=== PATIENT | female | born 1950 | race Caucasian/White ===

== ENCOUNTER 2016-05-19 15:58 | Inpatient (IN) | payer OTHER ==
[~2016-05-19] VITALS: Ht 152.4 cm; Wt 136.8 kg
[~2016-05-19 15:58] MED LIST: NORPTMEDS CO
[2016-05-19] MEDS ORDERED: DILTIAZEM HCL 25 MG/5 ML VIAL IV ONE (17:00)
[2016-05-19] MEDS ORDERED: METOPROLOL TARTRATE 1MG/1ML-5ML VIAL IV ONE (17:30)
[2016-05-19 17:36] LABS: Basophils # (auto) 0 uL; Basophils % (auto) 0.2 % (0.0-2.0); Eosinophils # (auto) 0 uL; Eosinophils % (auto) 0.2 % (0.0-7.0); Hemoglobin 15.7 g/dL (12.2-16.2); Lymphocytes # (auto) 1.4 uL; Mean Corpuscular Hemoglobin 30.2 pg (28.0-32.0); Mean Corpuscular Volume 94.3 fL (80.0-100.0); Mean Platelet Volume 10.1 fL (7.4-10.4); Monocytes # (auto) 0.9 uL; Neutrophils # (auto) 10.4 uL; Neutrophils % (auto) 81.6 % (37.0-80.0); Platelet Count (auto) 206 10^3/uL (140-450); Red Cell Distribution Width 14.4 % (11.6-16.0); White Blood Cell 12.8 10^3/uL (4.4-10.8)
[2016-05-19] MEDS ORDERED: ENOXAPARIN SOD 150 MG/1 ML SYRINGE SC ONE (17:45)
[2016-05-19 17:47] LABS: Albumin 2.9 g/dL (3.4-5.0); Calcium 8.9 mg/dL (8.5-10.1); Magnesium 2.2 mg/dL (1.6-2.6); Potassium 5.1 mmol/L (3.5-5.1)
[2016-05-19 17:50] LABS: BUN/Creatinine Ratio 21.6
[2016-05-19 17:53] LABS: Bilirubin, Total 0.4 mg/dL (0.2-1.0); Total Protein 7.5 g/dL (6.4-8.2)
[2016-05-19 18:09] LABS: Urine Bilirubin Negative (Negative); Urine Blood TRACE /uL (Negative); Urine Color Yellow (Yellow); Urine Glucose 4+ mg/dL (Normal); Urine Ketone 1+ (Negative); Urine Nitrite Negative (Negative); Urine RBC 3 /hpf (0 - 4); Urine Squamous Epithelial Cell FEW /hpf (<5); Urine Urobilinogen Normal (Negative); Urine pH 5.5 (5.0-8.0)
[2016-05-19] MEDS ORDERED: InsuLIN REG 1unit/0.01ml Soln (100units/ml) IV ONE (18:15)
[2016-05-19] MEDS ORDERED: metroNIDAZOLE 500MG/100ML 100 ML IV ONE (18:15)
[2016-05-19] MEDS ORDERED: cefTRIAXone 1GM/50ML D5W 50 ML IV ONE (18:15)
[2016-05-19 18:22] LABS: INR 1.08 (0.9-1.15); Prothrombin Time 11.1 sec (9.37-12.3)
[2016-05-19] MEDS ORDERED: IOHEXOL 350 MG/ML 100ML IJ ONE (18:35)
[2016-05-19 19:30] LABS: Lactic Acid 2.2 mmol/L (0.4-2.0)
[2016-05-19 19:33] LABS: REFLEX LACTIC ACID YES OR NO NO
[2016-05-19] MEDS ORDERED: ONDANSETRON HCL 4 MG/2 ML VIAL IV PRN (21:45)
[2016-05-19] MEDS ORDERED: TEMAZEPAM 15 MG CAP PO PRN (21:45)
[2016-05-19] MEDS ORDERED: DEXTROSE (50%) 50ML SYRG IV PRN (21:45)
[2016-05-19] MEDS ORDERED: NITROGLYCERIN 0.4 MG SL TAB SL PRN (21:45)
[2016-05-19] MEDS ORDERED: MORPHINE SULF INJ 2 MG/ML SYRINGE 1ML IV PRN (21:45)
[2016-05-19] MEDS ORDERED: ACETAMINOPHEN 325 MG TAB PO PRN (21:45)
[2016-05-19] MEDS: FAMOTIDINE 20 MG TAB PO SCH (22:37)
[2016-05-19] MEDS: METOPROLOL TARTRATE 25 MG TAB PO SCH (22:37)
[2016-05-19] MEDS: SODIUM CHLORIDE 0.9% 1,000 ML IV SCH (22:38)
[2016-05-19] MEDS: HYDROcodone-ACET 5/325MG TAB PO PRN (22:40)
[2016-05-19 23:10] VITALS: BP 105/71
[2016-05-20] VITALS (38 sets, daily range): BP systolic 100–153; BP diastolic 53–96
[2016-05-20] MEDS: InsuLIN REG 1unit/0.01ml Soln (100units/ml) SC SCH ×6 (00:44→20:19)
[2016-05-20] MEDS: MORPHINE SULF INJ 2 MG/ML SYRINGE 1ML IV PRN ×3 (01:52→22:59)
[2016-05-20] MEDS: ACCU-CHEK COMFORT CURVE STRIP VI SCH ×6 (04:00→20:16)
[2016-05-20] MEDS: HYDROcodone-ACET 5/325MG TAB PO PRN (04:44)
[2016-05-20 06:05] LABS: Basophils # (auto) 0.1 uL; Basophils % (auto) 0.6 % (0.0-2.0); Eosinophils # (auto) 0.1 uL; Eosinophils % (auto) 0.9 % (0.0-7.0); Hematocrit 46.1 % (36.0-46.0); Hemoglobin 14.8 g/dL (12.2-16.2); Lymphocytes # (auto) 2.6 uL; Lymphocytes % (auto) 21.1 % (10.0-50.0); Mean Corpuscular Hemoglobin 30.3 pg (28.0-32.0); Mean Corpuscular Hgb Conc. 32.1 g/dL (32.0-36.0); Mean Corpuscular Volume 94.3 fL (80.0-100.0); Mean Platelet Volume 9.9 fL (7.4-10.4); Monocytes # (auto) 0.8 uL; Monocytes % (auto) 6.6 % (0.0-12.0); Neutrophils # (auto) 8.6 uL; Neutrophils % (auto) 70.8 % (37.0-80.0); Platelet Count (auto) 212 10^3/uL (140-450); Red Cell Distribution Width 14.2 % (11.6-16.0); White Blood Cell 12.2 10^3/uL (4.4-10.8)
[2016-05-20] MEDS: ENOXAPARIN SOD 150 MG/1 ML SYRINGE SC SCH ×3 (06:12→22:44)
[2016-05-20 06:52] LABS: Albumin 2.6 g/dL (3.4-5.0); BUN/Creatinine Ratio 26.5; Bilirubin, Total 0.4 mg/dL (0.2-1.0); Calcium 9.2 mg/dL (8.5-10.1); Potassium 4.4 mmol/L (3.5-5.1); Total Protein 6.5 g/dL (6.4-8.2)
[2016-05-20] MEDS ORDERED: cefTRIAXone 1GM/50ML D5W 50 ML IV SCH (09:00)
[2016-05-20] MEDS: FAMOTIDINE 20 MG TAB PO SCH ×2 (10:27→22:43)
[2016-05-20] MEDS: METOPROLOL TARTRATE 25 MG TAB PO SCH ×2 (10:34→22:44)
[2016-05-20] MEDS: SODIUM CHLORIDE 0.9% 1,000 ML IV SCH ×2 (10:34→22:45)
[2016-05-20] MEDS ORDERED: AMIODARONE HCL 150 MG in D5W 5% 100 ML IV ONE (13:15)
[2016-05-20] MEDS ORDERED: AMIODARONE HCL 900 MG in DEXTROSE 500 ML IV SCH (13:25)
[2016-05-20] MEDS: ASPirin-EC 81 mg tab PO SCH (17:45)
[2016-05-20 18:37] LABS: INR 1.14 (0.9-1.15); Partial Thromboplastin Time 31.8 sec (22.64-33.71); Prothrombin Time 11.7 sec (9.37-12.3)
[2016-05-20] MEDS: AMIODARONE HCL 900 MG in DEXTROSE 500 ML IV SCH (19:26)
[2016-05-20] MEDS ORDERED: WARFARIN SODIUM 5 MG TAB PO ONE (20:00)
[2016-05-20] MEDS: INSULIN DETEMIR(LEVEMIR) 1unit/0.01ml Soln (100units/ml) SC SCH (23:06)
[2016-05-21] VITALS (41 sets, daily range): BP systolic 90–137; BP diastolic 44–80
[2016-05-21] MEDS: InsuLIN REG 1unit/0.01ml Soln (100units/ml) SC SCH ×6 (00:02→20:24)
[2016-05-21] MEDS: HYDROcodone-ACET 5/325MG TAB PO PRN ×3 (01:29→18:48)
[2016-05-21 03:49] LABS: Basophils # (auto) 0.2 uL; Basophils % (auto) 1.7 % (0.0-2.0); Eosinophils # (auto) 0.1 uL; Eosinophils % (auto) 0.9 % (0.0-7.0); Lymphocytes # (auto) 1.5 uL; Lymphocytes % (auto) 13.5 % (10.0-50.0); Mean Corpuscular Hemoglobin 30.1 pg (28.0-32.0); Mean Corpuscular Hgb Conc. 31.9 g/dL (32.0-36.0); Mean Corpuscular Volume 94.2 fL (80.0-100.0); Mean Platelet Volume 9.1 fL (7.4-10.4); Monocytes # (auto) 0.8 uL; Monocytes % (auto) 7.4 % (0.0-12.0); Neutrophils # (auto) 8.4 uL; Neutrophils % (auto) 76.5 % (37.0-80.0); Platelet Count (auto) 201 10^3/uL (140-450); Red Cell Distribution Width 13.8 % (11.6-16.0); SUSPECT VIEW TRANSMISSION
[2016-05-21 04:00] LABS: INR 1.12 (0.9-1.15); Partial Thromboplastin Time 33.8 sec (22.64-33.71); Prothrombin Time 11.5 sec (9.37-12.3)
[2016-05-21 04:04] LABS: BUN/Creatinine Ratio 23.9; Calcium 8.4 mg/dL (8.5-10.1); Potassium 4.4 mmol/L (3.5-5.1)
[2016-05-21] MEDS: ACCU-CHEK COMFORT CURVE STRIP VI SCH ×6 (04:04→20:05)
[2016-05-21] MEDS: SODIUM CHLORIDE 0.9% 1,000 ML IV SCH (09:00)
[2016-05-21] MEDS: ASPirin-EC 81 mg tab PO SCH (10:29)
[2016-05-21] MEDS: METOPROLOL TARTRATE 25 MG TAB PO SCH (10:30)
[2016-05-21] MEDS: ENOXAPARIN SOD 150 MG/1 ML SYRINGE SC SCH ×2 (10:30→21:43)
[2016-05-21] MEDS: FAMOTIDINE 20 MG TAB PO SCH ×2 (10:30→21:42)
[2016-05-21] MEDS: MORPHINE SULF INJ 2 MG/ML SYRINGE 1ML IV PRN ×2 (11:28→21:41)
[2016-05-21] MEDS ORDERED: METOPROLOL TARTRATE 50 MG TAB PO ONE (14:30)
[2016-05-21] MEDS: AMIODARONE HCL 200 MG TAB PO SCH (14:50)
[2016-05-21] MEDS ORDERED: WARFARIN SODIUM 2.5 MG TAB PO ONE (17:00)
[2016-05-21] MEDS: AMIODARONE HCL 900 MG in DEXTROSE 500 ML IV SCH (19:58)
[2016-05-21] MEDS: METOPROLOL TARTRATE 50 MG TAB PO SCH (21:50)
[2016-05-21] MEDS ORDERED: METOPROLOL TARTRATE 50 MG TAB PO SCH (22:00)
[2016-05-21] MEDS: INSULIN DETEMIR(LEVEMIR) 1unit/0.01ml Soln (100units/ml) SC SCH (22:02)
[2016-05-22] VITALS (7 sets, daily range): BP systolic 92–140; BP diastolic 60–84
[2016-05-22] MEDS: ACCU-CHEK COMFORT CURVE STRIP VI SCH ×7 (01:09→23:59)
[2016-05-22] MEDS: InsuLIN REG 1unit/0.01ml Soln (100units/ml) SC SCH ×6 (04:00→20:09)
[2016-05-22 05:07] LABS: Basophils # (auto) 0.1 uL; Basophils % (auto) 0.7 % (0.0-2.0); Eosinophils # (auto) 0.1 uL; Eosinophils % (auto) 0.7 % (0.0-7.0); Hematocrit 44.6 % (36.0-46.0); Hemoglobin 14.4 g/dL (12.2-16.2); Lymphocytes # (auto) 1.3 uL; Lymphocytes % (auto) 10.1 % (10.0-50.0); Mean Corpuscular Hemoglobin 30.5 pg (28.0-32.0); Mean Corpuscular Hgb Conc. 32.3 g/dL (32.0-36.0); Mean Corpuscular Volume 94.3 fL (80.0-100.0); Mean Platelet Volume 9.2 fL (7.4-10.4); Monocytes % (auto) 7.5 % (0.0-12.0); Neutrophils # (auto) 10.8 uL; Platelet Count (auto) 247 10^3/uL (140-450); Red Cell Distribution Width 14.4 % (11.6-16.0); White Blood Cell 13.3 10^3/uL (4.4-10.8)
[2016-05-22 05:20] LABS: INR 1.26 (0.9-1.15); Partial Thromboplastin Time 37.1 sec (22.64-33.71)
[2016-05-22] MEDS ORDERED: AMIODARONE HCL 200 MG TAB PO ONE (09:30)
[2016-05-22] MEDS: FAMOTIDINE 20 MG TAB PO SCH ×2 (09:32→21:31)
[2016-05-22] MEDS: ENOXAPARIN SOD 150 MG/1 ML SYRINGE SC SCH (09:33)
[2016-05-22] MEDS: METOPROLOL TARTRATE 50 MG TAB PO SCH ×2 (09:33→23:59)
[2016-05-22] MEDS: ASPirin-EC 81 mg tab PO SCH (09:33)
[2016-05-22] MEDS: AMIODARONE HCL 200 MG TAB PO SCH (09:34)
[2016-05-22] MEDS: HYDROcodone-ACET 5/325MG TAB PO PRN (11:03)
[2016-05-22] MEDS: HEPARIN DRIP/D5W 100UNITS/ML 250 ML IV SCH (14:33)
[2016-05-22] MEDS ORDERED: WARFARIN SODIUM 2.5 MG TAB PO ONE (17:00)
[2016-05-22] MEDS: INSULIN DETEMIR(LEVEMIR) 1unit/0.01ml Soln (100units/ml) SC SCH (21:56)
[2016-05-23] MEDS: InsuLIN REG 1unit/0.01ml Soln (100units/ml) SC SCH ×5 (00:25→16:00)
[2016-05-23 04:00] VITALS: BP 111/78
[2016-05-23] MEDS: HEPARIN DRIP/D5W 100UNITS/ML 250 ML IV SCH ×2 (04:00→08:18)
[2016-05-23] MEDS: ACCU-CHEK COMFORT CURVE STRIP VI SCH ×5 (04:24→21:29)
[2016-05-23 04:32] LABS: Basophils # (auto) 0.1 uL; Basophils % (auto) 0.7 % (0.0-2.0); Eosinophils # (auto) 0.2 uL; Eosinophils % (auto) 2.1 % (0.0-7.0); Hematocrit 40.3 % (36.0-46.0); Lymphocytes # (auto) 1.7 uL; Lymphocytes % (auto) 18.4 % (10.0-50.0); Mean Corpuscular Hemoglobin 30.2 pg (28.0-32.0); Mean Corpuscular Hgb Conc. 32.3 g/dL (32.0-36.0); Mean Corpuscular Volume 93.8 fL (80.0-100.0); Mean Platelet Volume 8.8 fL (7.4-10.4); Monocytes # (auto) 0.8 uL; Monocytes % (auto) 8.4 % (0.0-12.0); Neutrophils # (auto) 6.5 uL; Neutrophils % (auto) 70.4 % (37.0-80.0); Platelet Count (auto) 247 10^3/uL (140-450); Red Cell Distribution Width 14.5 % (11.6-16.0); White Blood Cell 9.2 10^3/uL (4.4-10.8)
[2016-05-23 04:53] LABS: BUN/Creatinine Ratio 25.5; Calcium 8.3 mg/dL (8.5-10.1); Potassium 4.1 mmol/L (3.5-5.1)
[2016-05-23 06:15] LABS: INR 1.95 (0.9-1.15); Prothrombin Time 20.1 sec (9.37-12.3)
[2016-05-23 06:16] LABS: Partial Thromboplastin Time 100.4 sec (22.64-33.71)
[2016-05-23] MEDS: LACTULOSE 20Gm/30ML SOLN PO PRN ×2 (07:20→07:48)
[2016-05-23 08:00] VITALS: BP 98/37
[2016-05-23] MEDS: ASPirin-EC 81 mg tab PO SCH (09:50)
[2016-05-23] MEDS: AMIODARONE HCL 200 MG TAB PO SCH (09:50)
[2016-05-23] MEDS: FAMOTIDINE 20 MG TAB PO SCH ×2 (09:51→21:28)
[2016-05-23] MEDS: METOPROLOL TARTRATE 50 MG TAB PO SCH ×2 (09:51→21:28)
[2016-05-23 12:00] VITALS: BP 143/68
[2016-05-23 12:38] LABS: Partial Thromboplastin Time 63.9 sec (22.64-33.71)
[2016-05-23 12:46] LABS: INR 1.96 (0.9-1.15); Prothrombin Time 20.2 sec (9.37-12.3)
[2016-05-23 16:00] VITALS: BP 137/78
[2016-05-23] MEDS ORDERED: WARFARIN SODIUM 5 MG TAB PO ONE (17:00)
[2016-05-23] MEDS ORDERED: DEXTROSE (50%) 50ML SYRG IV PRN (19:00)
[2016-05-23 19:38] LABS: Partial Thromboplastin Time 54.4 sec (22.64-33.71)
[2016-05-23 19:46] LABS: INR 2.05 (0.9-1.15); Prothrombin Time 21.1 sec (9.37-12.3)
[2016-05-23 20:00] VITALS: BP 111/57
[2016-05-23] MEDS ORDERED: InsuLIN REG 1unit/0.01ml Soln (100units/ml) SC SCH (22:00)
[2016-05-23] MEDS: INSULIN DETEMIR(LEVEMIR) 1unit/0.01ml Soln (100units/ml) SC SCH (22:03)
[2016-05-24] VITALS (7 sets, daily range): BP systolic 101–136; BP diastolic 52–76
[2016-05-24] MEDS: HEPARIN DRIP/D5W 100UNITS/ML 250 ML IV SCH (01:07)
[2016-05-24] MEDS: HYDROcodone-ACET 5/325MG TAB PO PRN (01:08)
[2016-05-24 06:07] LABS: Basophils # (auto) 0 uL; Basophils % (auto) 0.4 % (0.0-2.0); Eosinophils # (auto) 0.2 uL; Eosinophils % (auto) 2.2 % (0.0-7.0); Hematocrit 43.3 % (36.0-46.0); Hemoglobin 13.9 g/dL (12.2-16.2); Lymphocytes # (auto) 1.5 uL; Lymphocytes % (auto) 14.5 % (10.0-50.0); Mean Corpuscular Hemoglobin 30.4 pg (28.0-32.0); Mean Corpuscular Volume 94.9 fL (80.0-100.0); Mean Platelet Volume 10.2 fL (7.4-10.4); Monocytes # (auto) 0.8 uL; Monocytes % (auto) 8.2 % (0.0-12.0); Neutrophils # (auto) 7.5 uL; Neutrophils % (auto) 74.7 % (37.0-80.0); Platelet Count (auto) 304 10^3/uL (140-450); Red Cell Distribution Width 14.5 % (11.6-16.0); White Blood Cell 10.1 10^3/uL (4.4-10.8)
[2016-05-24 06:21] LABS: BUN/Creatinine Ratio 23.1; Calcium 8.5 mg/dL (8.5-10.1); Magnesium 2.2 mg/dL (1.6-2.6); Potassium 4.3 mmol/L (3.5-5.1)
[2016-05-24 06:28] LABS: Partial Thromboplastin Time 57.9 sec (22.64-33.71)
[2016-05-24 06:35] LABS: INR 2.2 (0.9-1.15); Prothrombin Time 22.7 sec (9.37-12.3)
[2016-05-24] MEDS: InsuLIN REG 1unit/0.01ml Soln (100units/ml) SC SCH ×2 (06:38→11:51)
[2016-05-24] MEDS: ACCU-CHEK COMFORT CURVE STRIP VI SCH ×2 (06:38→11:48)
[2016-05-24] MEDS: FAMOTIDINE 20 MG TAB PO SCH (10:12)
[2016-05-24] MEDS: ASPirin-EC 81 mg tab PO SCH (10:12)
[2016-05-24] MEDS: AMIODARONE HCL 200 MG TAB PO SCH (10:12)
[2016-05-24] MEDS: METOPROLOL TARTRATE 50 MG TAB PO SCH (10:13)
[2016-05-24 10:32] LABS: Partial Thromboplastin Time 64.3 sec (22.64-33.71)
[2016-05-24 10:34] LABS: INR 2.33 (0.9-1.15)
[2016-05-24] MEDS ORDERED: LEVEMIR SC (12:32)
[2016-05-24] MEDS ORDERED: WARPRX PO (12:32)
[2016-05-24] MEDS ORDERED: AMI200T PO (12:32)
[2016-05-24] MEDS ORDERED: MET50T PO (12:32)
[2016-05-24] MEDS ORDERED: ASP81EC PO (12:32)
[2016-05-24] MEDS ORDERED: INSREGI SC (12:36)
[2016-05-24] MEDS ORDERED: WARFARIN SODIUM 5 MG TAB PO ONE (17:00)
[2016-05-26 07:05] LABS: PTT-LA Mix 65.9 sec (0.0-40.6)
== END 2016-05-24 15:22 | disposition home health service (06) | DRG 175 ==
LOC: ER 16:20 → TELE 16:21 → TELE-CENTR 23:07 → ICU WEST 05-20 13:51 → DOU IN ICU 05-21 16:05
PROVIDERS: ADMIT Nurse Practitioner; ATTEND Hospitalist
DX: I26.99 Other pulmonary embolism without acute cor pulmonale (principal); J96.00 Acute respiratory failure, unspecified whether with hypoxia or hypercapnia; I74.3 Embolism and thrombosis of arteries of the lower extremities; I82.412 Acute embolism and thrombosis of left femoral vein; E44.0 Moderate protein-calorie malnutrition; J98.11 Atelectasis; I42.9 Cardiomyopathy, unspecified; I82.401 Acute embolism and thrombosis of unspecified deep veins of right lower extremity; Z68.43 Body mass index [BMI] 50.0-59.9, adult; I48.91 Unspecified atrial fibrillation; E66.01 Morbid (severe) obesity due to excess calories; E11.65 Type 2 diabetes mellitus with hyperglycemia; E11.22 Type 2 diabetes mellitus with diabetic chronic kidney disease; R59.0 Localized enlarged lymph nodes; K76.0 Fatty (change of) liver, not elsewhere classified; I70.90 Unspecified atherosclerosis; N18.3 Chronic kidney disease, stage 3 (moderate); I48.2 Chronic atrial fibrillation; Z83.3 Family history of diabetes mellitus
CPT/HCPCS: 36415; 51702; 71020; 71260; 74177; 80048; 80053; 81001; 81241; 82962; 83036; 83605; 83735; 84484; 85025; 85049; 85610; 85613; 85670; 85705; 85730; 85732; 87040; 87081; 93005; 93306; 93970; 96365; 96368; 96372; 96375; 99291; J0696; J1815; J3490; J7060

== ENCOUNTER 2016-06-22 16:20 | Inpatient (IN) | payer OTHER ==
[~2016-06-22] VITALS: Ht 167.6 cm; Wt 300.0 kg
[~2016-06-22 16:20] MED LIST changes: +AMI200T PO; +ASP81EC PO; +INSREGI SC; +LEVEMIR SC; +MET50T PO; +WARPRX PO
[2016-06-22 17:28] LABS: Basophils # (auto) 0.1 uL; Basophils % (auto) 0.7 % (0.0-2.0); Eosinophils # (auto) 0.2 uL; Eosinophils % (auto) 2.1 % (0.0-7.0); Hematocrit 48.5 % (36.0-46.0); Hemoglobin 15.3 g/dL (12.2-16.2); Lymphocytes # (auto) 1.6 uL; Lymphocytes % (auto) 22.5 % (10.0-50.0); Mean Corpuscular Hemoglobin 29.5 pg (28.0-32.0); Mean Corpuscular Hgb Conc. 31.6 g/dL (32.0-36.0); Mean Corpuscular Volume 93.3 fL (80.0-100.0); Monocytes # (auto) 0.5 uL; Monocytes % (auto) 6.7 % (0.0-12.0); Neutrophils # (auto) 4.9 uL; Platelet Count (auto) 279 10^3/uL (140-450); Red Cell Distribution Width 15.1 % (11.6-16.0); White Blood Cell 7.2 10^3/uL (4.4-10.8)
[2016-06-22 17:49] LABS: Prothrombin Time 45.4 sec (9.37-12.3)
[2016-06-22 17:51] LABS: BUN/Creatinine Ratio 17.6; Bilirubin, Total 0.4 mg/dL (0.2-1.0); Potassium 4.8 mmol/L (3.5-5.1); Total Protein 7.3 g/dL (6.4-8.2)
[2016-06-22 17:54] LABS: INR 4.41 (0.9-1.15)
[2016-06-22] MEDS ORDERED: PHYTONADIONE (VIT K)10 MG/ML 1ML VIAL SUBCUT ONE (20:30)
[2016-06-22] MEDS ORDERED: DEXTROSE (50%) 50ML SYRG IV PRN (22:15)
[2016-06-22] MEDS ORDERED: ONDANSETRON HCL 4 MG/2 ML VIAL IV PRN (22:15)
[2016-06-22] MEDS ORDERED: ACETAMINOPHEN 325 MG TAB PO PRN (22:15)
[2016-06-22] MEDS ORDERED: TEMAZEPAM 15 MG CAP PO PRN (22:15)
[2016-06-22] MEDS ORDERED: HYDROcodone-ACET 5/325MG TAB PO PRN (22:15)
[2016-06-22 23:00] VITALS: BP 132/93
[2016-06-23] MEDS: ACCU-CHEK COMFORT CURVE STRIP VI SCH ×4 (00:33→17:56)
[2016-06-23] MEDS: InsuLIN REG 1unit/0.01ml Soln (100units/ml) SC SCH ×4 (00:44→17:57)
[2016-06-23 05:32] VITALS: BP 106/60
[2016-06-23 06:14] LABS: Basophils # (auto) 0 uL; Basophils % (auto) 0.6 % (0.0-2.0); Eosinophils # (auto) 0.2 uL; Eosinophils % (auto) 2.8 % (0.0-7.0); Hematocrit 42.6 % (36.0-46.0); Hemoglobin 13.4 g/dL (12.2-16.2); Lymphocytes # (auto) 1.6 uL; Lymphocytes % (auto) 26.2 % (10.0-50.0); Mean Corpuscular Hemoglobin 29.4 pg (28.0-32.0); Mean Corpuscular Hgb Conc. 31.5 g/dL (32.0-36.0); Mean Corpuscular Volume 93.4 fL (80.0-100.0); Mean Platelet Volume 9.9 fL (7.4-10.4); Monocytes # (auto) 0.4 uL; Monocytes % (auto) 7.1 % (0.0-12.0); Neutrophils # (auto) 3.8 uL; Neutrophils % (auto) 63.3 % (37.0-80.0); Platelet Count (auto) 247 10^3/uL (140-450); Red Cell Distribution Width 14.9 % (11.6-16.0)
[2016-06-23 06:34] LABS: Partial Thromboplastin Time 40.5 sec (22.64-33.71)
[2016-06-23 06:38] LABS: Albumin 2.5 g/dL (3.4-5.0); Calcium 8.6 mg/dL (8.5-10.1)
[2016-06-23 06:40] LABS: BUN/Creatinine Ratio 18.2; Prothrombin Time 44.1 sec (9.37-12.3)
[2016-06-23 06:42] LABS: INR 4.28 (0.9-1.15)
[2016-06-23 06:50] LABS: Bilirubin, Total 0.5 mg/dL (0.2-1.0)
[2016-06-23 08:00] VITALS: BP 134/71
[2016-06-23 09:13] VITALS: BP 134/71
[2016-06-23] MEDS ORDERED: FAMOTIDINE 20 MG TAB PO SCH (10:00)
[2016-06-23] MEDS ORDERED: METOPROLOL TARTRATE 50 MG TAB PO SCH (10:00)
[2016-06-23] MEDS ORDERED: ASPirin 81 mg TAB PO SCH (10:00)
[2016-06-23] MEDS ORDERED: AMIODARONE HCL 200 MG TAB PO SCH (10:00)
[2016-06-23 12:40] VITALS: BP 108/73
[2016-06-23 16:21] LABS: INR 2.85 (0.9-1.15); Prothrombin Time 29.4 sec (9.37-12.3)
[2016-06-23 17:10] VITALS: BP 122/64
== END 2016-06-23 20:05 | disposition home health service (06) | DRG 300 ==
LOC: ER 16:26 → OVERFLOW 16:27 → CENTRAL 23:11
PROVIDERS: ADMIT Internal Medicine; ATTEND Internal Medicine
DX: I82.403 Acute embolism and thrombosis of unspecified deep veins of lower extremity, bilateral (principal); Z68.45 Body mass index [BMI] 70 or greater, adult; E66.01 Morbid (severe) obesity due to excess calories; E11.65 Type 2 diabetes mellitus with hyperglycemia; E88.09 Other disorders of plasma-protein metabolism, not elsewhere classified; I10 Essential (primary) hypertension; I89.0 Lymphedema, not elsewhere classified; Z79.01 Long term (current) use of anticoagulants; Z80.3 Family history of malignant neoplasm of breast; Z82.49 Family history of ischemic heart disease and other diseases of the circulatory system; Z79.4 Long term (current) use of insulin; Z79.899 Other long term (current) drug therapy; Z86.711 Personal history of pulmonary embolism
CPT/HCPCS: 36415; 80053; 82962; 83036; 85025; 85610; 85730; 87081; 93970; 96372; J1815; J3430

== ENCOUNTER 2016-07-27 15:49 | Emergency (ER) | payer OTHER ==
[~2016-07-27] VITALS: Ht 167.6 cm; Wt 127.0 kg
[2016-07-27 16:10] VITALS: BP 141/90
[2016-07-27 17:05] LABS: Basophils # (auto) 0 uL; Basophils % (auto) 0.4 % (0.0-2.0); Eosinophils # (auto) 0.2 uL; Eosinophils % (auto) 2.4 % (0.0-7.0); Hematocrit 45.9 % (36.0-46.0); Hemoglobin 15.1 g/dL (12.2-16.2); Lymphocytes % (auto) 19.9 % (10.0-50.0); Mean Corpuscular Hemoglobin 30.6 pg (28.0-32.0); Mean Corpuscular Hgb Conc. 32.9 g/dL (32.0-36.0); Mean Corpuscular Volume 93.1 fL (80.0-100.0); Mean Platelet Volume 8.9 fL (7.4-10.4); Monocytes # (auto) 0.6 uL; Monocytes % (auto) 6.1 % (0.0-12.0); Neutrophils # (auto) 7.1 uL; Neutrophils % (auto) 71.2 % (37.0-80.0); Platelet Count (auto) 293 10^3/uL (140-450); Red Cell Distribution Width 15.6 % (11.6-16.0)
[2016-07-27 17:21] LABS: Partial Thromboplastin Time 28.4 sec (22.64-33.71)
[2016-07-27 17:25] LABS: BUN/Creatinine Ratio 12.7; Calcium 9.2 mg/dL (8.5-10.1); Potassium 4.1 mmol/L (3.5-5.1)
[2016-07-27 17:28] LABS: Bilirubin, Total 0.4 mg/dL (0.2-1.0); Total Protein 7.8 g/dL (6.4-8.2)
[2016-07-27 17:45] LABS: INR 1.24 (0.9-1.15); Prothrombin Time 12.8 sec (9.37-12.3)
== END 2016-07-27 18:35 | disposition left against medical advice (07) ==
LOC: ER 15:49
DX: H57.11 Ocular pain, right eye (principal); R51 Headache; Z53.21 Procedure and treatment not carried out due to patient leaving prior to being seen by health care provider
CPT/HCPCS: 36415; 80053; 85025; 85610; 85730

== ENCOUNTER 2019-02-06 13:19 | Inpatient (IN) | payer OTHER ==
[~2019-02-06] VITALS: Ht 167.6 cm; Wt 87.4 kg
[~2019-02-06 13:19] MED LIST changes: -AMI200T PO; +AMIO200T4 PO
[2019-02-06] MEDS ORDERED: MORPHINE SULF INJ 2 MG/ML SYRINGE 1ML IV ONE (14:00)
[2019-02-06] MEDS ORDERED: ONDANSETRON HCL 4 MG/2 ML VIAL IV ONE (14:00)
[2019-02-06] MEDS ORDERED: cefTRIAXone 1GM/50ML D5W 50 ML IV ONE ×2 (14:00→17:15)
[2019-02-06 14:12] LABS: INR 0.98 (0.9-1.15)
[2019-02-06 14:15] LABS: Albumin 2.9 g/dL (3.4-5.0); Calcium 9.3 mg/dL (8.5-10.1); Potassium 4.2 mmol/L (3.5-5.1)
[2019-02-06 14:18] LABS: BUN/Creatinine Ratio 19.3; Bilirubin, Total 0.9 mg/dL (0.2-1.0); Total Protein 7.7 g/dL (6.4-8.2)
[2019-02-06 14:54] LABS: Basophils # (auto) 0.1 uL; Basophils % (auto) 1.2 % (0.0-2.0); Eosinophils # (auto) 0.1 uL; Eosinophils % (auto) 0.7 % (0.0-7.0); Hematocrit 49.5 % (36.0-46.0); Hemoglobin 16.9 g/dL (12.2-16.2); Lymphocytes # (auto) 1.8 uL; Lymphocytes % (auto) 18.8 % (10.0-50.0); Mean Corpuscular Hemoglobin 32.3 pg (28.0-32.0); Mean Corpuscular Hgb Conc. 34.1 g/dL (32.0-36.0); Mean Corpuscular Volume 94.6 fL (80.0-100.0); Monocytes # (auto) 0.7 uL; Monocytes % (auto) 7.9 % (0.0-12.0); Neutrophils # (auto) 6.8 uL; Neutrophils % (auto) 71.4 % (37.0-80.0); Nucleated Red Blood Cells % 0.1 %; Platelet Count (auto) 244 10^3/uL (140-450); Red Blood Cells 5.23 10^6/uL (4.0-5.20); Red Cell Distribution Width 13.5 % (11.8-14.3); White Blood Cell 9.5 10^3/uL (4.4-10.8)
[2019-02-06 15:29] LABS: Magnesium 1.8 mg/dL (1.6-2.6)
[2019-02-06 16:07] LABS: Urine Bacteria MANY /hpf (None Seen); Urine Blood TRACE /uL (Negative); Urine Hyaline Cast FEW /lpf (0 - 2); Urine Mucus FEW (None Seen); Urine Specific Gravity 1.014 (1.001-1.035); Urine WBC 269 /hpf (0 - 5); Urine WBC Clumps PRESENT /hpf (None Seen)
[2019-02-06] MEDS ORDERED: NITROGLYCERIN 0.4 MG SL TAB SL PRN (17:15)
[2019-02-06] MEDS ORDERED: WARFARIN SODIUM 5 MG TAB PO ONE (17:15)
[2019-02-06] MEDS ORDERED: FUROSEMIDE 20 MG/2 ML VIAL IV ONE (17:15)
[2019-02-06] MEDS ORDERED: ACETAMINOPHEN 325 MG TAB PO PRN (17:15)
[2019-02-06] MEDS ORDERED: MORPHINE SULF INJ 2 MG/ML SYRINGE 1ML IV PRN (17:15)
[2019-02-06] MEDS ORDERED: METOPROLOL TARTRATE 1MG/1ML-5ML VIAL IV PRN (17:30)
[2019-02-06] MEDS ORDERED: FUROSEMIDE 100 MG/10ML VIAL IV ONE (17:30)
[2019-02-06] MEDS ORDERED: DEXTROSE (50%) 50ML SYRG IV ONE (17:30)
[2019-02-06] MEDS: ALBUTEROL SULF 2.5 MG/0.5ML(0.5%) NEB SOLN NEB SCH (17:56)
[2019-02-06] MEDS: ENOXAPARIN SOD 150 MG/1 ML SYRINGE SC SCH (18:02)
[2019-02-06] MEDS: cefTRIAXone 1GM/50ML D5W 50 ML IV SCH (18:03)
[2019-02-06 19:15] VITALS: BP 126/79
--- NOTE | 2019-02-06 20:45 | NUR ---
Telemetry admit from [facility]ON[facility] TOM[facility] B[facility]EN admitted to Telemetry unit after NO SBAR was received. Patient oriented to KENYATTA WILLIS, RN primary RN, unit, room, bed, and unit policies regarding patient care and visiting hours. Patient now on continuous telemetry monitoring, tele box # 57 and telemetry reading on arrival to unit is A-fib 99bpm. Patient placed on bedside oxygen 4L/min, weighed by bedscale and encouraged to call if they need something. All questions and concerns addressed, patient verbalized understanding. Patient is A/O x4, blanchable redness to sacrum, legs have non-pitting edema and dark redness to bilateral lower extremities, she has 4 L/min via nasal cannula but is requesting to have it removed, no complaints of SOB. She was repositioned to her left side using a pillow behind her back. Daughter is at bedside. Explained plan of care, all questions answered. Call light is within reach, side rails up x2, bed is in lowest position, brakes are locked.
[2019-02-06] MEDS ORDERED: QUET25TA37 PO (21:34)
[2019-02-06] MEDS ORDERED: ASCO500T11 PO (21:34)
[2019-02-06] MEDS ORDERED: BRIM0.1S3 RIGHTEYE (21:34)
[2019-02-06] MEDS ORDERED: DORZ2SOL18 RIGHTEYE (21:34)
[2019-02-06] MEDS ORDERED: PNEUMOCOCCAL VACC POLYS 25 MCG/0.5 ML VIAL IM ONE (21:45)
[2019-02-06] MEDS ORDERED: DORZOLAMIDE HCL 2% OPTH(EYE) SOL 10ML RIGHTEYE ONE (22:00)
[2019-02-06 22:15] VITALS: BP 116/69
[2019-02-06] MEDS: QUEtiapine FUMARATE 25 MG TAB PO SCH (22:31)
[2019-02-06] MEDS: InsuLIN REG 1unit/0.01ml Soln (100units/ml) SC SCH (22:32)
[2019-02-06] MEDS: ACCU-CHEK COMFORT CURVE STRIP VI SCH (22:32)
[2019-02-06] MEDS: BRIMONIDINE 0.2% OPTH Soln 5ml RIGHTEYE SCH (22:32)
[2019-02-07] MEDS: ALBUTEROL SULF 2.5 MG/0.5ML(0.5%) NEB SOLN NEB SCH ×4 (00:28→19:20)
[2019-02-07 05:00] VITALS: BP 106/60
[2019-02-07] MEDS: BRIMONIDINE 0.2% OPTH Soln 5ml RIGHTEYE SCH ×3 (05:58→22:26)
[2019-02-07 06:04] LABS: Basophils # (auto) 0.1 uL; Basophils % (auto) 1.2 % (0.0-2.0); Eosinophils # (auto) 0.2 uL; Eosinophils % (auto) 2.2 % (0.0-7.0); Hematocrit 46.9 % (36.0-46.0); Lymphocytes # (auto) 2.1 uL; Lymphocytes % (auto) 27.6 % (10.0-50.0); Mean Corpuscular Hgb Conc. 34.1 g/dL (32.0-36.0); Mean Corpuscular Volume 93.6 fL (80.0-100.0); Monocytes # (auto) 0.8 uL; Monocytes % (auto) 10.6 % (0.0-12.0); Neutrophils # (auto) 4.4 uL; Neutrophils % (auto) 58.4 % (37.0-80.0); Nucleated Red Blood Cells % 0.1 %; Platelet Count (auto) 219 10^3/uL (140-450); Red Blood Cells 5.01 10^6/uL (4.0-5.20); Red Cell Distribution Width 13.6 % (11.8-14.3); White Blood Cell 7.6 10^3/uL (4.4-10.8)
[2019-02-07] MEDS ORDERED: InsuLIN REG 1unit/0.01ml Soln (100units/ml) ONE ×2 (06:07→22:23)
[2019-02-07] MEDS: InsuLIN REG 1unit/0.01ml Soln (100units/ml) SC SCH ×4 (06:09→22:26)
[2019-02-07] MEDS: ACCU-CHEK COMFORT CURVE STRIP VI SCH ×4 (06:10→22:26)
[2019-02-07 06:37] LABS: INR 1.11 (0.9-1.15)
--- NOTE | 2019-02-07 07:16 | NUR ---
Endorsed care to Rick FIERRO.
[2019-02-07 08:00] VITALS: BP 109/51
[2019-02-07 09:00] VITALS: BP 109/51
[2019-02-07] MEDS: METOPROLOL TARTRATE 50 MG TAB PO SCH (10:00)
[2019-02-07] MEDS ORDERED: METOCLOPRAMIDE HCL 10 MG TAB PO SCH (10:00)
[2019-02-07] MEDS: cefTRIAXone 1GM/50ML D5W 50 ML IV SCH (10:01)
[2019-02-07] MEDS: ASPirin 81 mg TAB PO SCH (10:02)
[2019-02-07] MEDS: ENOXAPARIN SOD 150 MG/1 ML SYRINGE SC SCH (10:02)
[2019-02-07] MEDS: AMIODARONE HCL 200 MG TAB PO SCH (10:02)
[2019-02-07] MEDS: FUROSEMIDE 40 MG/4 ML VIAL IV SCH (10:03)
--- NOTE | 2019-02-07 11:58 | NUR ---
Respiratory note: PT REFUSED MED NEB TX. NO RESPIRATORY DISTRESS NOTED. WILL NOTIFY RN OF REFUSAL.
[2019-02-07 13:00] VITALS: BP 95/56
[2019-02-07 14:42] LABS: Calcium 9.2 mg/dL (8.5-10.1); Potassium 3.7 mmol/L (3.5-5.1)
[2019-02-07 14:44] LABS: BUN/Creatinine Ratio 22.5
--- NOTE | 2019-02-07 15:28 | NUR ---
patient jackson catheter discontinued as per dr. connor gracia request
--- NOTE | 2019-02-07 16:54 | NUR ---
RECEIVED CALL FROM DR SINGH IN REGARDS TO CARDIAC CLEARANCE FOR DISCHARGE PER DR KAPOOR REQUEST. DR SINGH GIVE APPORVAL FOR DISCHARGE PER CARDIAC CONSULTATION
[2019-02-07 17:00] VITALS: BP 85/52
[2019-02-07] MEDS ORDERED: WARFARIN SODIUM 2.5 MG TAB PO ONE (17:00)
[2019-02-07] MEDS: CEPHALEXIN 250 MG CAP PO SCH ×2 (18:14→23:24)
--- NOTE | 2019-02-07 18:26 | NUR ---
PATIENT DISCHARGED HOME. CARDIAC CLEARANCE TO DISCHARGE GIVEN BY DR SINGH. WAITING FOR ELECTRICAL POWER ENGINEER PLACEMENT TO BE ESTABLISHED.
--- NOTE | 2019-02-07 19:44 | NUR ---
Discharge planning per SS consult, patient has orders to dc to SNF. Referral faxed to [facility], they don't accept the patient's insurance, [place] [facility] [place] admission was gone for the day, acceptance is pending. [facility] after hours Victor Manuel advised that doctor Adwoa wanted this patient out today, and advised to send it to [facility] and [facility]. Referral was faxed, and both post acute's admission team was gone for the day. Silas notified Dr. Orona of no accepting facility at the moment. Will follow up on 02.08.19.
[2019-02-07 21:41] VITALS: BP 115/59
[2019-02-07] MEDS: QUEtiapine FUMARATE 25 MG TAB PO SCH (22:25)
[2019-02-08] MEDS: ALBUTEROL SULF 2.5 MG/0.5ML(0.5%) NEB SOLN NEB SCH ×3 (00:35→14:09)
[2019-02-08 05:33] VITALS: BP 139/58
[2019-02-08] MEDS ORDERED: InsuLIN REG 1unit/0.01ml Soln (100units/ml) ONE (06:07)
[2019-02-08] MEDS: CEPHALEXIN 250 MG CAP PO SCH ×3 (06:17→17:19)
[2019-02-08] MEDS: BRIMONIDINE 0.2% OPTH Soln 5ml RIGHTEYE SCH ×2 (06:17→13:49)
[2019-02-08] MEDS: InsuLIN REG 1unit/0.01ml Soln (100units/ml) SC SCH ×3 (06:18→17:16)
[2019-02-08] MEDS: ACCU-CHEK COMFORT CURVE STRIP VI SCH ×3 (06:18→17:16)
[2019-02-08 06:24] LABS: INR 1.93 (0.9-1.15)
[2019-02-08 08:00] VITALS: BP 109/75
[2019-02-08 09:19] VITALS: BP 105/77
[2019-02-08] MEDS: METOPROLOL TARTRATE 50 MG TAB PO SCH (10:00)
[2019-02-08] MEDS: AMIODARONE HCL 200 MG TAB PO SCH (10:00)
--- NOTE | 2019-02-08 10:10 | NUR ---
PATIENT TRANSFERRED TO [facility] FOR PHYSICAL THERAPY. ALL IV ACCESS DISCONTINUED. TELEMETRY BOX REMOVED AND RETURNED TO TELEMETRY DEPARTMENT. TRANSPORTED BY [facility]. ALL DISCHARGE/TRANSFER PAPERWORK SIGNED. ALL DISCHARGE INSTRUCTIONS GIVEN AND SIGNED BY SON.
[2019-02-08] MEDS: ASPirin 81 mg TAB PO SCH (10:31)
[2019-02-08] MEDS: FUROSEMIDE 40 MG/4 ML VIAL IV SCH (10:31)
[2019-02-08] MEDS: ENOXAPARIN SOD 150 MG/1 ML SYRINGE SC SCH (10:32)
[2019-02-08 10:58] VITALS: BP 109/75
[2019-02-08 13:00] VITALS: BP 124/69
--- NOTE | 2019-02-08 14:58 | NUR ---
Discharge planning per consult, patient has orders to dc to SNF for physical therapy. Referral faxed and [facility] has agreed to accept this patient to room [address] Jaquan Corcoran. Obtained auth from [facility] for [id number], and for [facility] transportation [id number]. Placed a follow up call to [facility] and spoke to Arianne and scheduled a molded goods spot picker for the patient at 5pm. Nurse Cabrera was advised of the dc plan. Addendum: 02/08/19 at 1536 by CAMERON WALDRON Amended: Links added.
--- NOTE | 2019-02-08 15:08 | NUR ---
assessment Patient is a 68 year old female who is alert and oriented. Patients cognitive abilities are intact. Prior to admission patient lived home alone and functioned with assistance. Per patient her PCP is Dr Corcoran. Patient has a fww for home use. Per patients daughter Edna who is at bedside she and patients son help patient with cooking and cleaning and DR appointments. Patient is weak and per Edna patient should benefit from SNF on discharge. I informed patient she has a right to speak to a community mental health social worker regarding all care. I informed patient she has a right to participate in any and all discharge planning. Patient has a POA and advanced directive. Patients son Alton Boyle is POA. Patient verbalized understanding and agreed to discharge plan to SNF. Addendum: 02/08/19 at 1512 by Essie WAITE Amended: Links added.
--- NOTE | 2019-02-08 15:33 | NUR ---
re-assessment Per consult patient lives alone and needs assistance. [facility] states [facility] not helped [facility]. Eugenia from [facility] is meeting with patient and family at bedside to see if patient qualifies for the ME aide and assist program. Patient will also be transferred to a SNF for rehab on discharge. Addendum: 02/08/19 at 1535 by Essie Mccord Amended: Links added.
--- NOTE | 2019-02-08 16:35 | NUR ---
TRANSFER REPORT GIVEN TO OSMIN AT [facility]. PATIENT TRANSFERRING TO ROOM 55B/ DR Jaquan NAIDU RECEIVING PATIENT
[2019-02-08] MEDS ORDERED: WARFARIN SODIUM 2.5 MG TAB PO ONE (17:00)
[2019-02-08 17:22] VITALS: BP 161/76
== END 2019-02-08 18:15 | DRG 682 ==
LOC: ER 13:19 → TELE 13:20 → TELE-WESTW 20:25
PROVIDERS: ADMIT Internal Medicine; ATTEND Internal Medicine
DX: N17.9 Acute kidney failure, unspecified (principal); J18.9 Pneumonia, unspecified organism; I82.402 Acute embolism and thrombosis of unspecified deep veins of left lower extremity; I13.0 Hypertensive heart and chronic kidney disease with heart failure and stage 1 through stage 4 chronic kidney disease, or unspecified chronic kidney disease; R32 Unspecified urinary incontinence; I87.2 Venous insufficiency (chronic) (peripheral); I50.9 Heart failure, unspecified; I48.0 Paroxysmal atrial fibrillation; H40.9 Unspecified glaucoma; E11.22 Type 2 diabetes mellitus with diabetic chronic kidney disease; E66.9 Obesity, unspecified; F32.9 Major depressive disorder, single episode, unspecified; H54.61 Unqualified visual loss, right eye, normal vision left eye; N18.9 Chronic kidney disease, unspecified; Z68.31 Body mass index [BMI] 31.0-31.9, adult; Z82.49 Family history of ischemic heart disease and other diseases of the circulatory system; Z86.718 Personal history of other venous thrombosis and embolism; Z86.73 Personal history of transient ischemic attack (TIA), and cerebral infarction without residual deficits
CPT/HCPCS: 36415; 51702; 70450; 71045; 80048; 80053; 81001; 82962; 83036; 83605; 83735; 83880; 84484; 85025; 85610; 85730; 87040; 87086; 93005; 93306; 93970; 94640; 94761; 96365; 96372; 96375; 97116; 97163; 97530; G0378; J0696; J1815; J2405

== ENCOUNTER 2019-12-11 20:39 | Inpatient (IN) | payer OTHER ==
[~2019-12-11] VITALS: Ht 167.6 cm; Wt 117.6 kg
[~2019-12-11 20:39] MED LIST changes: +ASCO500T11 PO; -ASP81EC PO; +ASPI-394 PO; +BRIM0.1S3 RIGHTEYE; +DORZ2SOL18 RIGHTEYE; +QUET25TA37 PO; +WARF-196 PO; -WARPRX PO
[2019-12-11] MEDS ORDERED: PROMETHAZINE HCL 25 MG/ML 1ML IV ONE (21:30)
[2019-12-11] MEDS ORDERED: MORPHINE SULFATE 4 MG/ML SYR/VIAL IV ONE (21:30)
[2019-12-11 22:52] LABS: Basophils # (auto) 0.1 10 ^3/uL (0-0.2); Basophils % (auto) 0.7 % (0.0-2.0); Eosinophils # (auto) 0.1 10 ^3/uL (0-0.8); Hematocrit 48.6 % (36.0-46.0); Hemoglobin 15.8 g/dL (12.2-16.2); Lymphocytes # (auto) 1.2 10 ^3/uL (0.4-5.4); Lymphocytes % (auto) 11.6 % (10.0-50.0); Mean Corpuscular Hemoglobin 31.3 pg (28.0-32.0); Mean Corpuscular Hgb Conc. 32.4 g/dL (32.0-36.0); Mean Corpuscular Volume 96.4 fL (80.0-100.0); Monocytes # (auto) 0.6 10 ^3/uL (0-1.3); Monocytes % (auto) 6.3 % (0.0-12.0); Neutrophils # (auto) 8.1 10 ^3/uL (1.6-8.6); Neutrophils % (auto) 80.4 % (37.0-80.0); Nucleated Red Blood Cells % 0.1 %; Platelet Count (auto) 231 10^3/uL (140-450); Red Blood Cells 5.04 10^6/uL (4.0-5.20); Red Cell Distribution Width 16.2 % (11.8-14.3); White Blood Cell 10.1 10^3/uL (4.4-10.8)
[2019-12-11 23:06] LABS: Urine Bacteria FEW /hpf (None Seen); Urine Blood Negative /uL (Negative); Urine Mucus FEW (None Seen); Urine Specific Gravity 1.014 (1.001-1.035); Urine WBC 89 /hpf (0 - 5)
[2019-12-11 23:14] LABS: Albumin 3.1 g/dL (3.4-5.0); BUN/Creatinine Ratio 17.5; Calcium 9.6 mg/dL (8.5-10.1); Potassium 4.3 mmol/L (3.5-5.1)
[2019-12-11 23:16] LABS: Bilirubin, Total 0.8 mg/dL (0.2-1.0); Total Protein 8.5 g/dL (6.4-8.2)
[2019-12-11] MEDS ORDERED: MORPHINE SULF INJ 2 MG/ML SYRINGE 1ML IV ONE (23:45)
[2019-12-12] MEDS: SODIUM CHLORIDE 0.9% 1,000 ML IV SCH ×2 (02:28→12:39)
[2019-12-12] MEDS ORDERED: DEXTROSE (50%) 50ML SYRG IV PRN (02:30)
[2019-12-12] MEDS ORDERED: ONDANSETRON HCL 4 MG/2 ML VIAL IV PRN ×3 (02:30→17:30)
[2019-12-12] MEDS ORDERED: SODIUM CHLORIDE 0.9% 1,000 ML IV ONE (02:30)
[2019-12-12] MEDS ORDERED: ACETAMINOPHEN 325 MG TAB PO PRN (02:30)
[2019-12-12] MEDS ORDERED: DOCUSATE SOD 100 MG CAP PO PRN (02:30)
[2019-12-12] MEDS: HYDROcodone-ACET 5/325MG TAB PO PRN (04:47)
[2019-12-12] MEDS: InsuLIN REG 1unit/0.01ml Soln (100units/ml) SC SCH ×2 (06:00→12:00)
[2019-12-12] MEDS: MORPHINE SULF INJ 2 MG/ML SYRINGE 1ML IV PRN (06:14)
[2019-12-12] MEDS: ACCU-CHEK COMFORT CURVE STRIP VI SCH ×2 (06:23→12:19)
[2019-12-12 08:05] LABS: Basophils # (auto) 0.1 10 ^3/uL (0-0.2); Eosinophils # (auto) 0.1 10 ^3/uL (0-0.8); Eosinophils % (auto) 1.7 % (0.0-7.0); Hematocrit 43.1 % (36.0-46.0); Lymphocytes # (auto) 0.9 10 ^3/uL (0.4-5.4); Lymphocytes % (auto) 13.7 % (10.0-50.0); Mean Corpuscular Hgb Conc. 32.5 g/dL (32.0-36.0); Mean Corpuscular Volume 95.2 fL (80.0-100.0); Monocytes # (auto) 0.4 10 ^3/uL (0-1.3); Monocytes % (auto) 6.1 % (0.0-12.0); Neutrophils % (auto) 77.5 % (37.0-80.0); Nucleated Red Blood Cells % 0.1 %; Platelet Count (auto) 194 10^3/uL (140-450); Red Blood Cells 4.52 10^6/uL (4.0-5.20); Red Cell Distribution Width 16.2 % (11.8-14.3); White Blood Cell 6.5 10^3/uL (4.4-10.8)
[2019-12-12 08:20] LABS: BUN/Creatinine Ratio 20.8; Calcium 8.9 mg/dL (8.5-10.1); Potassium 4.4 mmol/L (3.5-5.1)
[2019-12-12 08:33] LABS: INR 1.04 (0.9-1.15)
[2019-12-12] MEDS ORDERED: cefTRIAXone 1GM/50ML D5W 50 ML IV SCH (10:00)
--- NOTE | 2019-12-12 13:27 | NUR ---
Report Received report from TONIE Myles. Patient to go to surgery at this time. Addendum: 12/12/19 at 1514 by FREDY LIM RN RN TONIE Valdes RN
[2019-12-12] MEDS ORDERED: ceFAZolin 1GM/50ML 100 ML IV ONE (14:40)
[2019-12-12] MEDS ORDERED: KETOROLAC TROMETH 30 MG/ML 1ML VIAL ONE (14:41)
[2019-12-12] MEDS ORDERED: MORPHINE SULF(PF) 0.5MG/ML 10ML VIAL ONE ×2 (14:41→15:04)
[2019-12-12] MEDS ORDERED: VANCOMYCIN HCL 1000 MG VL ONE (14:43)
[2019-12-12] MEDS ORDERED: TRANEXAMIC ACID 20 ML ONE (14:45)
[2019-12-12] MEDS ORDERED: TETRACAINE 1% INJ 2 ML VIAL IJ ONE (14:54)
[2019-12-12] MEDS ORDERED: PHENYLEPHRINE HCL 10 MG/ML VL IV ONE (15:03)
[2019-12-12] MEDS ORDERED: ePHEDrine SULFATE 50 MG/ML AMP ONE (15:04)
[2019-12-12] MEDS ORDERED: fentaNYL CITRATE 100 MCG/2 ML VL ONE (15:04)
[2019-12-12] MEDS ORDERED: GLYCOPYRROLATE 0.2 MG/ML 1ML VIAL ONE (15:04)
[2019-12-12] MEDS ORDERED: MIDAZOLAM HCL 1MG/1ML-2 ML VIAL ONE (15:04)
[2019-12-12] MEDS ORDERED: ONDANSETRON HCL 4 MG/2 ML VIAL ONE (15:04)
[2019-12-12] MEDS ORDERED: PROPOFOL 10 MG/ML 20 ML IV ONE (15:04)
[2019-12-12] MEDS ORDERED: NALBUPHINE HCL 10 MG/1ml INJECTION SUBCUT ONE (17:30)
[2019-12-12] MEDS ORDERED: MEPERIDINE HCL (25 MG/ML) 1ML VIAL IV ONE (17:30)
[2019-12-12] MEDS ORDERED: NALOXONE HCL 0.4 MG/ML VIAL IV PRN (17:30)
[2019-12-12] MEDS ORDERED: diphenhdrAMINE HCL 50 MG/1 ML VL IV PRN (17:30)
[2019-12-12] MEDS ORDERED: DexAMETHasone SOD PHOS 10MG/1ML VIAL INJ IV PRN (17:30)
[2019-12-12] MEDS ORDERED: MEPERIDINE HCL (25 MG/ML) 1ML VIAL ONE (17:32)
--- NOTE | 2019-12-12 18:34 | NUR ---
Report Received report from FEED MILL OPERATORSirena. Per Sirena, patient to be evaluated by anesthesiologist once more before transferring tele floor.
--- NOTE | 2019-12-12 19:05 | NUR ---
PACU Called Received call from PACU. Retrieved patient from PACU with NOC RN. Report given, endorsed care.
[2019-12-12 19:25] VITALS: BP 93/54
[2019-12-12 20:00] VITALS: BP 91/54
--- NOTE | 2019-12-12 20:47 | NUR ---
Called Dr. Rice Per order from Adwoa, called Dr. Rice to resume patients aspirin and Coumadin and DC Lovenox. Order received from , read back, verified, and input.
[2019-12-12 21:00] VITALS: BP 100/63
--- NOTE | 2019-12-12 21:12 | NUR ---
Paged Dr. Mackey regarding MD order to start Eliquis instead of Coumadin. Awaiting call back.
--- NOTE | 2019-12-12 21:44 | NUR ---
Received orders from Dr. Mackey to resume amiodarone and start Eliquis and DC Coumadin. MD to see patient in morning.
[2019-12-12 22:00] VITALS: BP_SYST 105; BP_SYST 97; BP_DIAS 55; BP_DIAS 57
[2019-12-12] MEDS: BRIMONIDINE 0.2% OPTH Soln 5ml RIGHTEYE SCH (22:00)
[2019-12-12] MEDS: DORZOLAM-TIMOLOL(2/0.5%) OPTH(EYE) SOLN 10ML RIGHTEYE SCH (22:00)
[2019-12-12] MEDS: QUEtiapine FUMARATE 25 MG TAB PO SCH (22:41)
[2019-12-12] MEDS: ceFAZolin 1GM 2 GM in D5W 5% 100 ML IV SCH (22:42)
[2019-12-12] MEDS: ASCORBIC ACID 500 MG TAB PO SCH (22:42)
[2019-12-12] MEDS: APIXABAN 5 MG TAB PO SCH (22:42)
[2019-12-12 23:00] VITALS: BP 94/43
[2019-12-13] VITALS (13 sets, daily range): BP systolic 93–123; BP diastolic 45–80
[2019-12-13] MEDS: InsuLIN REG 1unit/0.01ml Soln (100units/ml) SC SCH ×3 (00:01→06:00)
--- NOTE | 2019-12-13 00:50 | NUR ---
Wound care performed to skin tear on left elbow, picture taken, wound consult placed.
[2019-12-13] MEDS: LACTATED RINGER'S 1,000 ML IV SCH ×2 (01:00→03:05)
[2019-12-13] MEDS: ceFAZolin 1GM 2 GM in D5W 5% 100 ML IV SCH ×3 (06:00→14:44)
[2019-12-13] MEDS: ACCU-CHEK COMFORT CURVE STRIP VI SCH ×2 (06:00)
[2019-12-13] MEDS: BRIMONIDINE 0.2% OPTH Soln 5ml RIGHTEYE SCH ×3 (06:00→22:26)
--- NOTE | 2019-12-13 06:02 | NUR ---
Spoke with Jame from after hours pharmacy regarding 0600 dose of Ancef. Not in IV fridge and patient cassette.
[2019-12-13 06:52] LABS: Hematocrit 42.3 % (36.0-46.0); Hemoglobin 13.7 g/dL (12.2-16.2)
--- NOTE | 2019-12-13 07:00 | NUR ---
Opening Shift Note Received report on the patient. Awake lying in bed. Patient shows no signs of distress at this time. Discussed the plan of care with the patient. Bed in lowest position, side rails up x2, and the call light is within reach.
[2019-12-13 07:03] LABS: INR 1.04 (0.9-1.15)
[2019-12-13 07:32] LABS: Potassium 5.1 mmol/L (3.5-5.1)
[2019-12-13 07:42] LABS: Albumin 2.4 g/dL (3.4-5.0); BUN/Creatinine Ratio 16.6; Bilirubin, Total 0.5 mg/dL (0.2-1.0); Calcium 8.9 mg/dL (8.5-10.1); Total Protein 6.6 g/dL (6.4-8.2)
[2019-12-13] MEDS ORDERED: ENOXAPARIN SOD 40 MG/0.4 ML SYRINGE SC SCH (10:00)
[2019-12-13] MEDS: APIXABAN 5 MG TAB PO SCH ×2 (10:10→22:26)
[2019-12-13] MEDS: ASPirin 81 mg TAB PO SCH (10:10)
[2019-12-13] MEDS: AMIODARONE HCL 200 MG TAB PO SCH (10:10)
[2019-12-13] MEDS: DORZOLAM-TIMOLOL(2/0.5%) OPTH(EYE) SOLN 10ML RIGHTEYE SCH ×2 (10:11→22:27)
[2019-12-13] MEDS: ASCORBIC ACID 500 MG TAB PO SCH ×2 (10:11→22:26)
[2019-12-13] MEDS: MORPHINE SULF INJ 2 MG/ML SYRINGE 1ML IV PRN (10:11)
--- NOTE | 2019-12-13 11:50 | NUR ---
WOUND CARE NOTE: Wound care in to see patient per wound care request regarding Lt arm wound. Bedside nurse took photograph of patient's wound for reference. Patient is 69 years old female with admitting diagnosis of Traumatic Fall with displaced Rt femoral neck fracture. Patient is s/p Rt hip surgery. She has C/D/I dressing to Rt hip. Radha Seymour at bedside assisting patient to sit on a chair. Patient's sacral and back examined during transfer to chair. No open wound or pressure injury noted other than intact ecchymosis to medial lower back and Rt gluteal. Patient is awake, alert and oriented, no stated pain at this time. Her Lauro score is 17. Patient noted with 9x6cm skin avulsion to Lt arm, elbow area. Wound is red with purple, ecchymotic nabeel wound, minimal serous drainage noted, no odor noted. Cleansed patient's wound with NS,patted dry with gauze,applied Thera honey gauze, covered with Telfa (non-adherent dressing), wrapped with Kerlix and secured with tape. Patient tolerated well. RECOMMENDATION: Nursing to continue with Q3D/PRN dressing change to Lt arm per MD order, frequent turning and repositioning schedule as condition permits, redistribute pressure points with pillows, continue monitoring by wound care while patient is hospitalized due to limited mobility. Addendum: 12/13/19 at 1525 by Tish Williamson RN Amended: Links added.
--- NOTE | 2019-12-13 12:13 | NUR ---
assessment Patient is a 69 year old female who is alert and oriented. Prior to admission patient lived home alone and had assistance for cleaning and errands. Per patient she will return home to her prior living arrangements post discharge and family will transport her home. Patient informed me she has a fww, rollator, wheelchair, and home oxygen for home use. Patients PCP is Dr Corcoran. Patient informed me she has a caregiver that help her with errands, driving to appointments and cleaning. 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 Patient informed me she does not drive, her caregiver drives her where she needs to go. 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 Patient informed me she feels safe at home and has all she needs. Patient has no post discharge needs identified at this time. I informed patient she has a right to speak to a social worker palliative care regarding all care. I informed patient she has a right to participate in any and all discharge planning. Patient has a POA and advanced directive. Patient verbalized understanding and agreed to discharge plan home. Addendum: 12/13/19 at 1219 by Essie WAITE Amended: Links added. Addendum: 12/13/19 at 1358 by Essie WAITE amend above note. Patient had a mechanical fall at home. Patient will need SNF for rehab prior to returning home on discharge.
[2019-12-13] MEDS ORDERED: SODIUM CHLORIDE 0.9% 500 ML IV ONE (12:45)
[2019-12-13] MEDS: SODIUM CHLORIDE 0.9% 1,000 ML IV SCH ×2 (12:45→22:50)
[2019-12-13] MEDS ORDERED: levoFLOXacin 500MG 100 ML IV ONE (12:45)
[2019-12-13] MEDS ORDERED: WARFARIN SODIUM 5 MG TAB PO SCH (17:00)
--- NOTE | 2019-12-13 19:00 | NUR ---
Opening Shift Note Assumed care of patient after receiving report. Patient is awake and alert with no S/S of distress/SOB or pain. Call light within reach, bed in lowest locked position, HOB semi fowlers. Instructed on POC and to call for assistance PRN, will continue to monitor for changes Q1hr and PRN.
[2019-12-13] MEDS ORDERED: cefTRIAXone 1GM/50ML D5W 50 ML IV SCH (22:00)
[2019-12-13] MEDS: QUEtiapine FUMARATE 25 MG TAB PO SCH (22:26)
[2019-12-14] MEDS: MORPHINE SULF INJ 2 MG/ML SYRINGE 1ML IV PRN ×3 (00:23→13:35)
--- NOTE | 2019-12-14 01:32 | NUR ---
Wound dressing/Partial bath Performed pericare for patient, patient passing gas, no BM noted. Changed patients gown. Reinforced wound dressing. Patient tolerated intervention well.
[2019-12-14] MEDS: HYDROcodone-ACET 5/325MG TAB PO PRN (03:08)
--- NOTE | 2019-12-14 03:08 | NUR ---
Pain assessment Patient reports pain 10/10. Morphine PRN not due at this time. Leland given for breakthrough pain. Will continue to monitor.
[2019-12-14 05:09] VITALS: BP 92/62
[2019-12-14] MEDS: BRIMONIDINE 0.2% OPTH Soln 5ml RIGHTEYE SCH ×2 (05:54→13:35)
[2019-12-14 08:24] VITALS: BP 95/53
[2019-12-14 08:57] LABS: Hemoglobin 12.5 g/dL (12.2-16.2)
[2019-12-14] MEDS: SODIUM CHLORIDE 0.9% 1,000 ML IV SCH ×2 (09:55→17:34)
[2019-12-14] MEDS: ASPirin 81 mg TAB PO SCH (09:56)
[2019-12-14] MEDS: DORZOLAM-TIMOLOL(2/0.5%) OPTH(EYE) SOLN 10ML RIGHTEYE SCH (09:56)
[2019-12-14] MEDS: AMIODARONE HCL 200 MG TAB PO SCH (09:56)
[2019-12-14] MEDS: APIXABAN 5 MG TAB PO SCH (09:56)
[2019-12-14] MEDS: ASCORBIC ACID 500 MG TAB PO SCH (09:56)
[2019-12-14 12:49] VITALS: BP 100/56
--- NOTE | 2019-12-14 15:19 | NUR ---
D/C Planning Regarding social service consult for SNF placement. clinical information was faxed to [facility] and [facility]. Per Rosibel with [facility] ) patient has been accepted to room 12b accepting MD, Dr. Juan Antonio Corcoran. ELIZABETH Cole with [facility] group was informed of accepting facility and was given an authorization for facility [id number] and [facility] [id number]. [facility] is ON WILL CALL.
[2019-12-14 16:30] VITALS: BP 106/57
[2019-12-14] MEDS ORDERED: LEVO500T21 PO (16:49)
[2019-12-14] MEDS ORDERED: APIX5TAB PO (16:49)
[2019-12-14 17:20] LABS: Basophils # (auto) 0 10 ^3/uL (0-0.2); Basophils % (auto) 0.4 % (0.0-2.0); Eosinophils # (auto) 0.3 10 ^3/uL (0-0.8); Eosinophils % (auto) 3.3 % (0.0-7.0); Hemoglobin 12.5 g/dL (12.2-16.2); Lymphocytes # (auto) 0.7 10 ^3/uL (0.4-5.4); Lymphocytes % (auto) 9.8 % (10.0-50.0); Mean Corpuscular Hgb Conc. 32.1 g/dL (32.0-36.0); Mean Corpuscular Volume 96.8 fL (80.0-100.0); Monocytes # (auto) 0.5 10 ^3/uL (0-1.3); Neutrophils # (auto) 6.1 10 ^3/uL (1.6-8.6); Neutrophils % (auto) 79.5 % (37.0-80.0); Platelet Count (auto) 152 10^3/uL (140-450); Red Blood Cells 4.03 10^6/uL (4.0-5.20); Red Cell Distribution Width 15.9 % (11.8-14.3); White Blood Cell 7.7 10^3/uL (4.4-10.8)
[2019-12-14 17:30] LABS: BUN/Creatinine Ratio 19.3; Calcium 9.2 mg/dL (8.5-10.1); Potassium 4.7 mmol/L (3.5-5.1)
--- NOTE | 2019-12-14 17:57 | NUR ---
SPOKE WITH [facility] NURSE REGARDING TRANSFER. WILL FAX DOCUMENTS. AWAITING CALLBACK FROM DR HIGGINBOTHAM FOR ORTHO CLEARANCE PER DC ORDER.
--- NOTE | 2019-12-14 18:34 | NUR ---
ORTHO CLEARANCE OPTAINED FROM DR HIGGINBOTHAM. [facility] CONTACTED. PICKUP SCHEDULED FOR 2029. WILL ENDORSE TO NIGHT NURSE.
--- NOTE | 2019-12-14 19:20 | NUR ---
Opening Shift Note Assumed care of patient after receiving report. Patient awake and alert with no S/S of distress/SOB or pain. Call light within reach, bed in lowest locked position, HOB semi fowlers, repositioned for comfort. Instructed on POC and to call for assist PRN, will continue to monitor for changes Q1hr and PRN.
[2019-12-14 19:25] VITALS: BP 114/54
--- NOTE | 2019-12-14 19:43 | NUR ---
Dr. Orona rounding on patient. Updated MD on current labs and process of discharge.
--- NOTE | 2019-12-14 20:01 | NUR ---
Called patients daughter regarding plan of care and transfer of patient.
--- NOTE | 2019-12-14 21:19 | NUR ---
DC completed with transfer paperwork. [facility] on site to transfer patient.
--- NOTE | 2019-12-14 21:39 | NUR ---
Imaging transfer unable to print at this time. Per charge, patient to be sent without. Called [facility] and informed Licensed Acupuncturist of image transfer complication. Patient off unit at this time.
== END 2019-12-14 21:40 | DRG 470 ==
LOC: EDBD 20:39 → ER 20:42 → TELE 20:43 → TELE-CENTR 12-12 20:44
PROVIDERS: ADMIT Hospitalist; ATTEND Internal Medicine
PROC: 0SRR0JZ Replacement of Right Hip Joint, Femoral Surface with Synthetic Substitute, Open Approach (ICD-10-PCS; principal; 2019-12-12 15:03)
DX: S72.011A Unspecified intracapsular fracture of right femur, initial encounter for closed fracture (principal); I48.20 Chronic atrial fibrillation, unspecified; N39.0 Urinary tract infection, site not specified; Z68.41 Body mass index [BMI] 40.0-44.9, adult; I13.0 Hypertensive heart and chronic kidney disease with heart failure and stage 1 through stage 4 chronic kidney disease, or unspecified chronic kidney disease; J96.11 Chronic respiratory failure with hypoxia; N17.9 Acute kidney failure, unspecified; H54.7 Unspecified visual loss; E66.01 Morbid (severe) obesity due to excess calories; E11.22 Type 2 diabetes mellitus with diabetic chronic kidney disease; E78.5 Hyperlipidemia, unspecified; F32.9 Major depressive disorder, single episode, unspecified; H54.61 Unqualified visual loss, right eye, normal vision left eye; I50.9 Heart failure, unspecified; N18.3 Chronic kidney disease, stage 3 (moderate); W18.39XA Other fall on same level, initial encounter; Y93.89 Activity, other specified; Y92.89 Other specified places as the place of occurrence of the external cause; Y99.8 Other external cause status; Z20.828 Contact with and (suspected) exposure to other viral communicable diseases; Z79.01 Long term (current) use of anticoagulants; Z80.3 Family history of malignant neoplasm of breast; Z82.49 Family history of ischemic heart disease and other diseases of the circulatory system; Z86.73 Personal history of transient ischemic attack (TIA), and cerebral infarction without residual deficits
CPT/HCPCS: 36415; 71045; 72170; 73502; 80048; 80053; 80061; 81001; 82962; 83036; 85014; 85018; 85025; 85610; 86850; 86900; 86901; 87040; 87086; 87088; 87186; 93005; A4565; G0378; J0690; J0696; J1885; J1956; J2250; J2405; J2704; J7060

== ENCOUNTER 2020-11-09 12:46 | Inpatient (IN) | payer OTHER ==
[~2020-11-09] VITALS: Ht 167.6 cm; Wt 124.3 kg
[~2020-11-09 12:46] MED LIST changes: +APIX5TAB PO; +LEVO500T31 PO; -MET50T PO; -NORPTMEDS CO; -WARF-196 PO
[2020-11-09 13:55] LABS: Basophils # (auto) 0 10 ^3/uL (0-0.2); Basophils % (auto) 0.1 % (0.0-2.0); Eosinophils # (auto) 0 10 ^3/uL (0-0.8); Eosinophils % (auto) 0.2 % (0.0-7.0); Hematocrit 48.3 % (36.0-46.0); Lymphocytes # (auto) 0.5 10 ^3/uL (0.4-5.4); Lymphocytes % (auto) 6.7 % (10.0-50.0); Mean Corpuscular Hgb Conc. 33.2 g/dL (32.0-36.0); Mean Corpuscular Volume 96.4 fL (80.0-100.0); Monocytes # (auto) 0.5 10 ^3/uL (0-1.3); Monocytes % (auto) 6.2 % (0.0-12.0); Neutrophils # (auto) 6.9 10 ^3/uL (1.6-8.6); Neutrophils % (auto) 86.8 % (37.0-80.0); Nucleated Red Blood Cells % 0.5 %; Red Blood Cells 5.01 10^6/uL (4.0-5.20); Red Cell Distribution Width 19.3 % (11.8-14.3); White Blood Cell 7.9 10^3/uL (4.4-10.8)
[2020-11-09] MEDS ORDERED: IPRATROPIUM BROM 0.5 MG/2.5ML INH SOL NEB ONE (14:00)
[2020-11-09] MEDS ORDERED: ALBUTEROL SULF 2.5 MG/0.5ML(0.5%) NEB SOLN NEB ONE (14:00)
[2020-11-09] MEDS ORDERED: FUROSEMIDE 20 MG/2 ML VIAL IV ONE (14:00)
[2020-11-09] MEDS ORDERED: cefTRIAXone 1GM/50ML D5W 50 ML IV ONE (14:00)
[2020-11-09 14:19] LABS: Alanine Aminotransferase 21 U/L (13-56); Albumin 1.8 g/dL (3.4-5.0); Anion Gap 9 (5-15); Aspartate Aminotransferase 17 U/L (15-37); BUN/Creatinine Ratio 21.4; Blood Urea Nitrogen 70 mg/dL (7-18); Calcium 9.1 mg/dL (8.5-10.1); Carbon Dioxide 17 mmol/L (21-32); Chloride 106 mmol/L (98-107); GFR African American 18 mL/min; GFR Non-African American 15 mL/min; Glucose 174 mg/dL (74-106); Potassium 4.8 mmol/L (3.5-5.1); Sodium 132 mmol/L (136-145)
[2020-11-09 14:23] LABS: Alkaline Phosphatase 83 U/L (45-117); Bilirubin, Total 1.4 mg/dL (0.2-1.0); Total Protein 6.6 g/dL (6.4-8.2)
[2020-11-09 16:19] LABS: INR 1.22 (0.9-1.15); Partial Thromboplastin Time 30.9 sec (23.0-31.2)
[2020-11-09 17:41] LABS: Urine Bacteria MANY /hpf (None Seen); Urine Blood 1+ /uL (Negative); Urine Hyaline Cast MANY /lpf (0 - 2); Urine Mucus FEW (None Seen); Urine Specific Gravity 1.017 (1.001-1.035); Urine WBC 930 /hpf (0 - 5)
[2020-11-09] MEDS ORDERED: DEXTROSE (50%) 50ML SYRG IV PRN ×2 (19:15→23:15)
[2020-11-09] MEDS ORDERED: ACETAMINOPHEN 325 MG TAB PO PRN ×3 (19:15→23:15)
[2020-11-09] MEDS ORDERED: NITROGLYCERIN 0.4 MG SL TAB SL PRN ×2 (19:15→23:15)
[2020-11-09] MEDS ORDERED: ONDANSETRON HCL 4 MG/2 ML VIAL IV PRN ×2 (19:15→23:15)
[2020-11-09] MEDS ORDERED: ALBUMIN 25% 100 ML IV SCH (19:15)
[2020-11-09] MEDS ORDERED: MORPHINE SULF INJ 2 MG/ML SYRINGE 1ML IV PRN ×2 (19:15→23:15)
[2020-11-09 21:11] VITALS: BP 100/66
[2020-11-09 22:00] VITALS: BP 100/60
[2020-11-09] MEDS ORDERED: ASCORBIC ACID 500 MG TAB PO SCH (22:00)
[2020-11-09] MEDS ORDERED: InsuLIN REG 1unit/0.01ml Soln (100units/ml) SC SCH (22:00)
[2020-11-09] MEDS ORDERED: SODIUM CHLOR 0.9% PF (SALINE LOCK) 10ML VIAL/SYR IV SCH (22:00)
[2020-11-09] MEDS ORDERED: ALBUTEROL SULF 2.5 MG/0.5ML(0.5%) NEB SOLN NEB SCH (22:00)
[2020-11-09] MEDS ORDERED: ACCU-CHEK COMFORT CURVE STRIP VI SCH (22:00)
[2020-11-09] MEDS ORDERED: IPRATROPIUM BROM 0.5 MG/2.5ML INH SOL NEB SCH (22:00)
[2020-11-09] MEDS ORDERED: FAMOTIDINE (10MG/ML) 2ML VL IV SCH (22:00)
[2020-11-09] MEDS ORDERED: HEPARIN SODIUM (PORCINE) 5000 UNITS/ML 1ML VIAL SC SCH (22:00)
[2020-11-09] MEDS: ALBUMIN 25% 100 ML IV SCH (23:40)
[2020-11-10 04:53] VITALS: BP 142/103
[2020-11-10] MEDS: SODIUM CHLOR 0.9% PF (SALINE LOCK) 10ML VIAL/SYR IV SCH ×3 (06:00→22:00)
[2020-11-10] MEDS: ALBUTEROL SULF 2.5 MG/0.5ML(0.5%) NEB SOLN NEB SCH ×5 (06:00→23:59)
[2020-11-10] MEDS: IPRATROPIUM BROM 0.5 MG/2.5ML INH SOL NEB SCH ×5 (06:00→23:59)
[2020-11-10] MEDS: InsuLIN REG 1unit/0.01ml Soln (100units/ml) SC SCH ×4 (06:33→22:00)
[2020-11-10] MEDS: ALBUMIN 25% 100 ML IV SCH ×2 (06:36→14:59)
[2020-11-10] MEDS: ACCU-CHEK COMFORT CURVE STRIP VI SCH ×4 (06:36→22:00)
[2020-11-10] MEDS ORDERED: InsuLIN REG 1unit/0.01ml Soln (100units/ml) SC SCH ×2 (07:00→22:00)
[2020-11-10] MEDS: cefTRIAXone 1GM/50ML D5W 50 ML IV SCH (08:24)
[2020-11-10 09:00] VITALS: BP 104/69
[2020-11-10] MEDS ORDERED: cefTRIAXone 1GM/50ML D5W 50 ML IV SCH (09:00)
[2020-11-10] MEDS: FUROSEMIDE 40 MG/4 ML VIAL IV SCH (09:50)
[2020-11-10] MEDS: FAMOTIDINE (10MG/ML) 2ML VL IV SCH (09:50)
[2020-11-10] MEDS: AZITHROMYCIN 500MG/ 250ML 250 ML IV SCH (09:51)
[2020-11-10] MEDS: MULTIPLE VITAMIN TAB PO SCH (09:51)
[2020-11-10] MEDS: HEPARIN SODIUM (PORCINE) 5000 UNITS/ML 1ML VIAL SC SCH ×2 (09:51→23:17)
[2020-11-10] MEDS ORDERED: AZITHROMYCIN 500MG/ 250ML 250 ML IV SCH (10:00)
[2020-11-10] MEDS ORDERED: FUROSEMIDE 40 MG/4 ML VIAL IV SCH (10:00)
[2020-11-10] MEDS ORDERED: ZINC SULFATE 220mg CAP or TAB PO SCH ×2 (10:00)
[2020-11-10] MEDS ORDERED: MULTIPLE VITAMIN TAB PO SCH (10:00)
[2020-11-10] MEDS ORDERED: ASCORBIC ACID 500 MG TAB PO SCH (10:00)
[2020-11-10] MEDS: AMIODARONE HCL 200 MG TAB PO SCH (12:50)
[2020-11-10] MEDS: APIXABAN 5 MG TAB PO SCH ×2 (12:50→23:16)
[2020-11-10 13:00] VITALS: BP 111/72
[2020-11-10 13:26] LABS: Basophils # (auto) 0 10 ^3/uL (0-0.2); Basophils % (auto) 0.4 % (0.0-2.0); Eosinophils # (auto) 0 10 ^3/uL (0-0.8); Eosinophils % (auto) 0.3 % (0.0-7.0); Hematocrit 44.7 % (36.0-46.0); Lymphocytes # (auto) 0.3 10 ^3/uL (0.4-5.4); Lymphocytes % (auto) 4.6 % (10.0-50.0); Mean Corpuscular Hemoglobin 32.1 pg (28.0-32.0); Mean Corpuscular Hgb Conc. 33.5 g/dL (32.0-36.0); Monocytes # (auto) 0.3 10 ^3/uL (0-1.3); Monocytes % (auto) 4.8 % (0.0-12.0); Neutrophils # (auto) 6.5 10 ^3/uL (1.6-8.6); Neutrophils % (auto) 89.9 % (37.0-80.0); Nucleated Red Blood Cells % 0.5 %; Red Blood Cells 4.66 10^6/uL (4.0-5.20); Red Cell Distribution Width 19.4 % (11.8-14.3); White Blood Cell 7.2 10^3/uL (4.4-10.8)
[2020-11-10 13:40] LABS: BUN/Creatinine Ratio 21.3; Calcium 9.3 mg/dL (8.5-10.1); Potassium 4.7 mmol/L (3.5-5.1)
[2020-11-10 17:00] VITALS: BP 108/80
[2020-11-10 22:00] VITALS: BP 95/61
[2020-11-10] MEDS: QUEtiapine FUMARATE 25 MG TAB PO SCH (22:00)
[2020-11-11 05:18] VITALS: BP 105/73
[2020-11-11] MEDS: SODIUM CHLOR 0.9% PF (SALINE LOCK) 10ML VIAL/SYR IV SCH ×3 (06:00→22:41)
[2020-11-11 06:07] LABS: Basophils # (auto) 0 10 ^3/uL (0-0.2); Basophils % (auto) 0.1 % (0.0-2.0); Eosinophils # (auto) 0 10 ^3/uL (0-0.8); Eosinophils % (auto) 0.3 % (0.0-7.0); Hematocrit 44.5 % (36.0-46.0); Hemoglobin 15.1 g/dL (12.2-16.2); Lymphocytes # (auto) 0.5 10 ^3/uL (0.4-5.4); Lymphocytes % (auto) 5.9 % (10.0-50.0); Mean Corpuscular Hemoglobin 32.7 pg (28.0-32.0); Mean Corpuscular Hgb Conc. 33.8 g/dL (32.0-36.0); Mean Corpuscular Volume 96.9 fL (80.0-100.0); Monocytes # (auto) 0.4 10 ^3/uL (0-1.3); Monocytes % (auto) 5.6 % (0.0-12.0); Neutrophils # (auto) 6.8 10 ^3/uL (1.6-8.6); Neutrophils % (auto) 88.1 % (37.0-80.0); Nucleated Red Blood Cells % 0.3 %; Red Cell Distribution Width 19.7 % (11.8-14.3); White Blood Cell 7.7 10^3/uL (4.4-10.8)
[2020-11-11 06:10] LABS: INR 1.21 (0.9-1.15); Partial Thromboplastin Time 38.2 sec (23.0-31.2)
[2020-11-11 06:14] LABS: BUN/Creatinine Ratio 21.5; Calcium 9.2 mg/dL (8.5-10.1); Phosphorus 4.8 mg/dL (2.5-4.90); Potassium 4.5 mmol/L (3.5-5.1)
[2020-11-11] MEDS: ALBUTEROL SULF 2.5 MG/0.5ML(0.5%) NEB SOLN NEB SCH ×5 (06:24→22:24)
[2020-11-11] MEDS: IPRATROPIUM BROM 0.5 MG/2.5ML INH SOL NEB SCH ×5 (06:24→22:24)
[2020-11-11] MEDS: InsuLIN REG 1unit/0.01ml Soln (100units/ml) SC SCH ×3 (06:56→22:00)
[2020-11-11] MEDS: ACCU-CHEK COMFORT CURVE STRIP VI SCH ×4 (06:56→22:28)
[2020-11-11] MEDS ORDERED: POVIDONE IODINE 10 % TOPICAL OINT 30GM TOP ONE (08:09)
[2020-11-11] MEDS ORDERED: BUPIVACAINE W/ EPINEPH 0.25% INJ 50ML MDV ONE (08:17)
[2020-11-11] MEDS ORDERED: SUCCINYLCHOLINE CHLORIDE 20 MG/ML 10ML VIAL IV ONE (08:18)
[2020-11-11] MEDS ORDERED: MIDAZOLAM HCL 1MG/1ML-2 ML VIAL ONE (08:20)
[2020-11-11] MEDS ORDERED: fentaNYL CITRATE 100 MCG/2 ML VL ONE (08:20)
[2020-11-11 08:25] LABS: Urine Amorphous Crystal FEW /hpf (None Seen); Urine Bacteria FEW /hpf (None Seen); Urine Blood 3+ /uL (Negative); Urine Hyaline Cast FEW /lpf (0 - 2); Urine Mucus FEW (None Seen); Urine Specific Gravity 1.012 (1.001-1.035); Urine WBC 59 /hpf (0 - 5)
[2020-11-11] MEDS ORDERED: LIDOCAINE 2% (LOCAL ANESTH.) PF 5ml SDV ONE (08:27)
[2020-11-11] MEDS ORDERED: ONDANSETRON HCL 4 MG/2 ML VIAL ONE (08:27)
[2020-11-11] MEDS ORDERED: PROPOFOL 10 MG/ML 20 ML IV ONE (08:27)
[2020-11-11 08:38] LABS: Protein, Urine 64.6 mg/dL (0.0-11.9)
[2020-11-11] MEDS: FUROSEMIDE 40 MG/4 ML VIAL IV SCH (10:00)
[2020-11-11] MEDS: MULTIPLE VITAMIN TAB PO SCH (10:00)
[2020-11-11] MEDS: AMIODARONE HCL 200 MG TAB PO SCH (10:00)
[2020-11-11] MEDS: HEPARIN SODIUM (PORCINE) 5000 UNITS/ML 1ML VIAL SC SCH ×2 (10:00→22:41)
[2020-11-11] MEDS: APIXABAN 5 MG TAB PO SCH ×2 (10:00→22:41)
[2020-11-11 10:10] VITALS: BP 105/68
[2020-11-11] MEDS ORDERED: HYDROmorphone HCL 2 MG/ML VL IV PRN (10:15)
[2020-11-11] MEDS: cefTRIAXone 1GM/50ML D5W 50 ML IV SCH (10:30)
[2020-11-11] MEDS: MUPIROCIN 2% OINT 15gm or 22gm EACHNOSTRI SCH ×2 (11:15→22:00)
[2020-11-11 11:42] VITALS: BP 112/74
[2020-11-11 13:45] VITALS: BP 100/61
[2020-11-11] MEDS ORDERED: ePHEDrine SULFATE 50 MG/ML AMP IV ONE (14:08)
[2020-11-11 19:50] LABS: Albumin 2.5 g/dL (3.4-5.0); BUN/Creatinine Ratio 22.6; Calcium 9.1 mg/dL (8.5-10.1); Potassium 4.7 mmol/L (3.5-5.1)
[2020-11-11 19:53] LABS: Bilirubin, Total 1.2 mg/dL (0.2-1.0)
[2020-11-11] MEDS: QUEtiapine FUMARATE 25 MG TAB PO SCH (22:41)
[2020-11-12] MEDS: SODIUM CHLOR 0.9% PF (SALINE LOCK) 10ML VIAL/SYR IV SCH ×3 (06:00→20:57)
[2020-11-12] MEDS: InsuLIN REG 1unit/0.01ml Soln (100units/ml) SC SCH ×4 (06:40→21:05)
[2020-11-12] MEDS: IPRATROPIUM BROM 0.5 MG/2.5ML INH SOL NEB SCH ×5 (06:46→22:48)
[2020-11-12] MEDS: ALBUTEROL SULF 2.5 MG/0.5ML(0.5%) NEB SOLN NEB SCH ×5 (06:46→22:48)
[2020-11-12 07:22] LABS: Basophils # (auto) 0 10 ^3/uL (0-0.2); Basophils % (auto) 0.1 % (0.0-2.0); Eosinophils # (auto) 0 10 ^3/uL (0-0.8); Eosinophils % (auto) 0.1 % (0.0-7.0); Hemoglobin 15.2 g/dL (12.2-16.2); Lymphocytes # (auto) 0.4 10 ^3/uL (0.4-5.4); Lymphocytes % (auto) 4.3 % (10.0-50.0); Mean Corpuscular Hgb Conc. 32.9 g/dL (32.0-36.0); Mean Corpuscular Volume 97.3 fL (80.0-100.0); Monocytes # (auto) 0.6 10 ^3/uL (0-1.3); Monocytes % (auto) 6.3 % (0.0-12.0); Neutrophils # (auto) 9.3 10 ^3/uL (1.6-8.6); Neutrophils % (auto) 89.2 % (37.0-80.0); Nucleated Red Blood Cells % 0.1 %; Red Blood Cells 4.73 10^6/uL (4.0-5.20); Red Cell Distribution Width 19.2 % (11.8-14.3); White Blood Cell 10.4 10^3/uL (4.4-10.8)
[2020-11-12 07:48] LABS: Sodium 137 mmol/L (136-145)
[2020-11-12 07:49] LABS: Anion Gap 12 (5-15); Carbon Dioxide 17 mmol/L (21-32); Chloride 108 mmol/L (98-107); Potassium 4.9 mmol/L (3.5-5.1)
[2020-11-12 07:50] LABS: BUN/Creatinine Ratio 20.8; Blood Urea Nitrogen 71 mg/dL (7-18); Calcium 9.3 mg/dL (8.5-10.1); GFR African American 17 mL/min; GFR Non-African American 14 mL/min; Glucose 95 mg/dL (74-106)
[2020-11-12 08:45] VITALS: BP 110/63
[2020-11-12] MEDS: cefTRIAXone 1GM/50ML D5W 50 ML IV SCH (09:49)
[2020-11-12] MEDS: FAMOTIDINE (10MG/ML) 2ML VL IV SCH (09:49)
[2020-11-12] MEDS: AZITHROMYCIN 500MG/ 250ML 250 ML IV SCH (09:49)
[2020-11-12] MEDS: AMIODARONE HCL 200 MG TAB PO SCH (09:50)
[2020-11-12] MEDS: FUROSEMIDE 40 MG/4 ML VIAL IV SCH (09:50)
[2020-11-12] MEDS: APIXABAN 5 MG TAB PO SCH ×2 (09:50→20:57)
[2020-11-12] MEDS: MULTIPLE VITAMIN TAB PO SCH (09:50)
[2020-11-12] MEDS: HEPARIN SODIUM (PORCINE) 5000 UNITS/ML 1ML VIAL SC SCH (10:14)
[2020-11-12] MEDS: MUPIROCIN 2% OINT 15gm or 22gm EACHNOSTRI SCH ×2 (11:19→20:57)
[2020-11-12] MEDS: ACCU-CHEK COMFORT CURVE STRIP VI SCH ×3 (11:27→20:58)
[2020-11-12 12:51] VITALS: BP 118/85
[2020-11-12 17:00] VITALS: BP 101/70
[2020-11-12] MEDS: QUEtiapine FUMARATE 25 MG TAB PO SCH (20:57)
[2020-11-12 22:00] VITALS: BP 99/70
[2020-11-13] VITALS (7 sets, daily range): BP systolic 88–107; BP diastolic 53–77
[2020-11-13 06:02] LABS: Basophils # (auto) 0 10 ^3/uL (0-0.2); Basophils % (auto) 0.1 % (0.0-2.0); Eosinophils # (auto) 0 10 ^3/uL (0-0.8); Eosinophils % (auto) 0.1 % (0.0-7.0); Hematocrit 42.4 % (36.0-46.0); Hemoglobin 14.3 g/dL (12.2-16.2); Lymphocytes # (auto) 0.4 10 ^3/uL (0.4-5.4); Lymphocytes % (auto) 4.1 % (10.0-50.0); Mean Corpuscular Hemoglobin 32.2 pg (28.0-32.0); Mean Corpuscular Hgb Conc. 33.7 g/dL (32.0-36.0); Mean Corpuscular Volume 95.4 fL (80.0-100.0); Monocytes # (auto) 0.5 10 ^3/uL (0-1.3); Monocytes % (auto) 4.9 % (0.0-12.0); Neutrophils # (auto) 8.7 10 ^3/uL (1.6-8.6); Neutrophils % (auto) 90.8 % (37.0-80.0); Nucleated Red Blood Cells % 0.1 %; Red Blood Cells 4.45 10^6/uL (4.0-5.20); Red Cell Distribution Width 19.5 % (11.8-14.3); White Blood Cell 9.6 10^3/uL (4.4-10.8)
[2020-11-13] MEDS: ACCU-CHEK COMFORT CURVE STRIP VI SCH ×4 (06:19→21:26)
[2020-11-13] MEDS: InsuLIN REG 1unit/0.01ml Soln (100units/ml) SC SCH ×4 (06:19→21:25)
[2020-11-13] MEDS: SODIUM CHLOR 0.9% PF (SALINE LOCK) 10ML VIAL/SYR IV SCH ×3 (06:19→21:21)
[2020-11-13 06:30] LABS: Potassium 4.5 mmol/L (3.5-5.1)
[2020-11-13 06:35] LABS: BUN/Creatinine Ratio 21.9; Calcium 9.4 mg/dL (8.5-10.1)
[2020-11-13] MEDS: IPRATROPIUM BROM 0.5 MG/2.5ML INH SOL NEB SCH ×6 (07:23→22:48)
[2020-11-13] MEDS: ALBUTEROL SULF 2.5 MG/0.5ML(0.5%) NEB SOLN NEB SCH ×6 (07:24→22:48)
[2020-11-13] MEDS: FUROSEMIDE 40 MG/4 ML VIAL IV SCH (09:22)
[2020-11-13] MEDS: cefTRIAXone 1GM/50ML D5W 50 ML IV SCH (09:22)
[2020-11-13] MEDS: APIXABAN 5 MG TAB PO SCH ×2 (09:23→21:21)
[2020-11-13] MEDS: AMIODARONE HCL 200 MG TAB PO SCH (09:23)
[2020-11-13] MEDS: MULTIPLE VITAMIN TAB PO SCH (09:23)
[2020-11-13] MEDS: MUPIROCIN 2% OINT 15gm or 22gm EACHNOSTRI SCH ×2 (09:24→21:21)
[2020-11-13] MEDS: AZITHROMYCIN 500MG/ 250ML 250 ML IV SCH (10:35)
[2020-11-13] MEDS ORDERED: DOXY-338 PO (19:09)
[2020-11-13] MEDS ORDERED: FURO1TAB31 PO (19:09)
[2020-11-13] MEDS ORDERED: MUPI2OIN2 EACHNOSTRI (19:09)
[2020-11-13] MEDS: QUEtiapine FUMARATE 25 MG TAB PO SCH (21:21)
[2020-11-14 05:00] VITALS: BP 93/64
[2020-11-14] MEDS: SODIUM CHLOR 0.9% PF (SALINE LOCK) 10ML VIAL/SYR IV SCH (06:15)
[2020-11-14] MEDS: InsuLIN REG 1unit/0.01ml Soln (100units/ml) SC SCH ×2 (06:15→12:21)
[2020-11-14] MEDS: ACCU-CHEK COMFORT CURVE STRIP VI SCH ×2 (06:16→12:21)
[2020-11-14] MEDS: IPRATROPIUM BROM 0.5 MG/2.5ML INH SOL NEB SCH ×2 (06:28→09:28)
[2020-11-14] MEDS: ALBUTEROL SULF 2.5 MG/0.5ML(0.5%) NEB SOLN NEB SCH ×3 (06:28→13:55)
[2020-11-14 07:56] LABS: Potassium 4.3 mmol/L (3.5-5.1)
[2020-11-14 08:00] VITALS: BP 103/69
[2020-11-14 08:06] LABS: BUN/Creatinine Ratio 19.2; Calcium 8.5 mg/dL (8.5-10.1)
[2020-11-14] MEDS: cefTRIAXone 1GM/50ML D5W 50 ML IV SCH (08:55)
[2020-11-14 09:00] VITALS: BP 103/69
[2020-11-14] MEDS: AZITHROMYCIN 500MG/ 250ML 250 ML IV SCH (09:52)
[2020-11-14] MEDS: MULTIPLE VITAMIN TAB PO SCH (09:52)
[2020-11-14] MEDS: FUROSEMIDE 40 MG/4 ML VIAL IV SCH (09:52)
[2020-11-14] MEDS: AMIODARONE HCL 200 MG TAB PO SCH (09:53)
[2020-11-14] MEDS: APIXABAN 5 MG TAB PO SCH (09:53)
[2020-11-14] MEDS: MUPIROCIN 2% OINT 15gm or 22gm EACHNOSTRI SCH (09:54)
[2020-11-14] MEDS ORDERED: FAMOTIDINE (10MG/ML) 2ML VL IV SCH (10:00)
[2020-11-14] MEDS ORDERED: SULF400T11 PO (10:48)
[2020-11-14 12:13] VITALS: BP 103/69
[2020-11-14 12:29] LABS: Urine Bacteria MANY /hpf (None Seen); Urine Blood 3+ /uL (Negative); Urine Specific Gravity 1.014 (1.001-1.035); Urine WBC 278 /hpf (0 - 5); Urine WBC Clumps PRESENT /hpf (None Seen)
== END 2020-11-14 14:06 | disposition hospice, home (50) | DRG 166 ==
LOC: ER 12:46 → EDBD 12:46 → EDUNIT# 12:46 → TELE 19:03 → ER 20:55 → TELE-EAST 21:01 → EAST 11-11 13:02 → TELE-CENTR 11-11 19:55
PROVIDERS: ADMIT Nurse Practitioner Family; ATTEND Internal Medicine
PROC: 0BH17EZ Insertion of Endotracheal Airway into Trachea, Via Natural or Artificial Opening (ICD-10-PCS; 2020-11-11)
PROC: 5A1935Z Respiratory Ventilation, Less than 24 Consecutive Hours (ICD-10-PCS; 2020-11-11)
PROC: 0W9B40Z Drainage of Left Pleural Cavity with Drainage Device, Percutaneous Endoscopic Approach (ICD-10-PCS; principal; 2020-11-11 08:25)
DX: J18.9 Pneumonia, unspecified organism (principal); J96.21 Acute and chronic respiratory failure with hypoxia; I50.33 Acute on chronic diastolic (congestive) heart failure; N17.0 Acute kidney failure with tubular necrosis; I13.0 Hypertensive heart and chronic kidney disease with heart failure and stage 1 through stage 4 chronic kidney disease, or unspecified chronic kidney disease; J98.11 Atelectasis; E87.1 Hypo-osmolality and hyponatremia; N39.0 Urinary tract infection, site not specified; I48.20 Chronic atrial fibrillation, unspecified; J93.9 Pneumothorax, unspecified; N18.4 Chronic kidney disease, stage 4 (severe); J44.0 Chronic obstructive pulmonary disease with (acute) lower respiratory infection; J91.8 Pleural effusion in other conditions classified elsewhere; Z51.5 Encounter for palliative care; E88.09 Other disorders of plasma-protein metabolism, not elsewhere classified; E11.65 Type 2 diabetes mellitus with hyperglycemia; F32.9 Major depressive disorder, single episode, unspecified; I27.29 Other secondary pulmonary hypertension; E66.01 Morbid (severe) obesity due to excess calories; I95.9 Hypotension, unspecified; I07.1 Rheumatic tricuspid insufficiency; Z68.38 Body mass index [BMI] 38.0-38.9, adult; B96.20 Unspecified Escherichia coli [E. coli] as the cause of diseases classified elsewhere; E11.22 Type 2 diabetes mellitus with diabetic chronic kidney disease; Z20.822 Contact with and (suspected) exposure to COVID-19; Z74.01 Bed confinement status; Z80.3 Family history of malignant neoplasm of breast; Z82.49 Family history of ischemic heart disease and other diseases of the circulatory system; Z86.73 Personal history of transient ischemic attack (TIA), and cerebral infarction without residual deficits; B95.62 Methicillin resistant Staphylococcus aureus infection as the cause of diseases classified elsewhere
CPT/HCPCS: 36415; 36600; 71045; 71250; 76604; 80048; 80053; 81001; 82570; 82805; 82962; 83605; 83615; 83880; 84100; 84156; 84300; 84484; 85025; 85049; 85610; 85730; 86850; 86900; 86901; 87040; 87070; 87077; 87081; 87086; 87088; 87186; 87205; 87426; 87804; 89051; 92610; 93005; 93306; 93975; 94002; 94640; 96365; 97110; 97530; 99291; A4565; G0378; J0330; J0696; J1815; J2001; J2250; J2405; J2704; J3490; P9047